=== PATIENT | female | born 1985 | race Caucasian/White ===

== ENCOUNTER 2022-06-09 12:21 | Outpatient (CLI) | payer OTHER, SELFPAY ==
[2022-06-09 12:44] LABS: Basophils Percent Auto 0.2 % (0.2-1.2); Eosinophils Absolute Auto 0.1 K/mm3 (0-0.3); Eosinophils Percent Auto 1.5 % (0-4.4); Hematocrit 44.3 % (37.0-47.0); Hemoglobin 14.3 g/dL (12.0-15.0); Immature Granulocyte Absolute 0.03 K/mm3 (0.00-0.031); Immature Granulocyte Percent A 0.3 % (0-0.5); Lymphocytes Absolute Auto 2.67 K/mm3 (0.9-3.2); Lymphocytes Percent Auto 28.9 % (18.3-44.2); Mean Corpuscular HGB Conc 32.3 g/dl (32-36); Mean Corpuscular Hemoglobin 26.3 pg (26-34); Mean Corpuscular Volume 81.6 fl (80-100); Mean Platelet Volume 9.3 fl (7.4-10.4); Monocytes Absolute Auto 0.5 K/mm3 (0.1-0.6); Monocytes Percent Auto 5.5 % (2.6-8.5); Neutrophils Absolute Auto 5.9 K/mm3 (1.3-6.7); Neutrophils Percent Auto 63.6 % (45.5-73.1); Platelet Count Result 286 k/mm3 (150-375); Red Blood Count 5.43 M/mm3 (4.2-5.4); Red Cell Distribution Width 14.1 % (11.5-14.5); White Blood Count 9.3 K/mm3 (4.5-10.0)
[2022-06-09 12:59] LABS: Alanine Aminotransferase 26 U/L (6-35); Albumin Level 4.2 g/dL (3.5-5.1); Alkaline Phosphatase 98 U/L (38-126); Anion Gap 7 mmol/L (8-16); Aspartate Amino Transferase 20 U/L (14-36); Bilirubin,Total 0.5 mg/dL (0.2-1.3); Blood Urea Nitrogen 11 mg/dL (7-17); Calcium 8.4 mg/dL (8.4-10.2); Carbon Dioxide 21 mmol/L (22-30); Chloride 112 mmol/L (98-107); Cholesterol 214 mg/dL (0-200); Estimated Glomerular Filt Rate > 60; Glucose 101 mg/dL (65-110); HDL Direct 58 mg/dL; Sodium 140 mmol/L (137-145); Triglycerides 53 mg/dL (<150)
[2022-06-09 13:11] LABS: LDL Cholesterol Direct 122 mg/dL
[2022-06-09 13:48] LABS: Thyroid Stimulating Hormone Reflex 0.721 uIU/mL (0.465-4.68)
== END 2022-06-09 12:22 | disposition home or self-care (01) ==
LOC: ANHLAB 12:22
PROVIDERS: PCP Family Medicine; Visit Provider Internal Medicine Cardiovascular Disease
DX: R00.0 Tachycardia, unspecified (principal)
CPT/HCPCS: 36415; 80053; 80061; 84443; 85025

== ENCOUNTER 2022-09-22 10:09 | Emergency (ER) | payer OTHER, SELFPAY ==
--- NOTE | ~2022-09-22 | CT_ITS ---
EXAMINATION: CT BRAIN W/O DATE: 09/22/2022 11:15 INDICATION: Head injury. Altered mental status. TECHNIQUE: Computed tomography (CT) of the head was performed without intravenous contrast. The dose- length product was 605.33 mGy-cm. Automated exposure control and iterative reconstruction technique w ere employed. COMPARISON: No prior studies for comparison. FINDINGS: Normal brain parenchymal volume for age. Normal pineda-white differentiation. No acute intrac ranial hemorrhage, infarction, mass or mass effect. No ventriculomegaly or midline shift. Midline sagittal images demonstrate a normal corpus callosum, c raniovertebral junction and sella turcica. Basilar cisterns are patent. Paranasal sinuses and mastoids are pneumatized. No depressed skull fractures. IMPRESSION: 1. No acute intracranial abnormality. Reviewed, dictated and finalized at location []
[2022-09-22 10:17] VITALS: BP 124/89; PULSE 88; RESP 18; TEMP 37.2; O2SAT 99
--- NOTE | 2022-09-22 11:26 | ED.GENADULT ---
HPI - General Adult General Chief complaint: Head Injury Stated complaint: HEAD INJURY 09/20/22 WANTS REEVAL Time Seen by Provider: 09/22/22 10:46 History of Present Illness HPI narrative: 37-year-old female presented the emergency department for evaluation for intermittent confusion after having a recent head injury. Patient reports that she fell onto her waistband the resulting in a laceration to her head. Patient was seen at an outside hospital and had a head CT which initially showed a possible bleed. Patient had a repeat head CT which showed no bleed. Patient presented to our emergency department because she states that she did have some increased confusion Related Data Home Medications Medication Instructions Recorded Confirmed No Home Medications 06/09/22 07/25/22 Allergies Allergy/AdvReac Type Severity Reaction Status Date / Time amoxicillin Allergy Severe amoxicillin Verified 09/22/22 10:16 ([id number]) Sulfa (Sulfonamide Allergy Mild Sulfa Verified 09/22/22 10:16 Antibiotics) (Sulfonamide Antibiotics) ([id number]) cephalexin Allergy Unknown cephalexin Verified 09/22/22 10:16 ([id number]) latex Allergy Unknown latex Verified 09/22/22 10:16 ([id number]) peanut Allergy Unknown peanut Verified 09/22/22 10:16 ([id number]) Penicillins Allergy Unknown Penicillins Verified 09/22/22 10:16 ([id number]) Review of Systems Review of Systems: All systems reviewed & are unremarkable except as noted in HPI and below PMFSH Social History Social History Smoking packs per day: 1 Smoking cigarettes per day: 20.0 Smoking status: Current every day smoker Tobacco type: cigarettes Alcohol intake: current Drinks per week: 2 Substance use: never Lack of Transportation: No Lack of Food: Never True Current Housing: I Have Housing Concerned About Future Housing: No Difficulty Paying Gas/Electric Bills: YES Difficulty Paying for Meds: No Currently Unemployed: YES Education: High School Diploma/GED Difficulty w/ Childcare or Family Care: No Living arrangements: with family Occupation/Education: unemployed Gender identity (if verbalized by the patient): Female Sexual Orientation (if Verbalized by the Patient): Straight or Heterosexual Spiritual care concerns: No Agree to blood products: Yes Exam Narrative: APPEARANCE: Well appearing, no pain, no distress, well-nourished. HEAD: normocephalic, atraumatic. EYES: PERRLA/EOMI, conjunctivae clear. NOSE: Normal no drainage EARS:TMS clear with good light reflex. THROAT: Pharynx clear, no exudate. NECK: Supple. No adenopathy, no masses. RESPIRATORY: Airway patent, respirations nonlabored. Clear to auscultation bilaterally, no rales, rhonchi, wheezing. CARDIOVASCULAR: Regular rate and rhythm without murmurs rubs or gallops. ABDOMINAL: Soft, nontender, nondistended, normal bowel sounds MUSCULOSKELETAL: Moves all extremities. Strength/ROM intact, No edema, No calf tenderness. NEURO: Alert. Cranial nerves II through XII intact. Grossly intact. No ataxia or drift SKIN: Warm, dry. Normal Color. Healing laceration Course Course Emergency Course: 37-year-old female presented ED for evaluation of confusion in the context of a possible head bleed after head injury. Head CT showed no acute intracranial abnormality. Patient had a normal neuro exam. Patient was alert and oriented to person place date. Patient was also able to provide her medical history and correctly stated to her family was. Symptoms are consistent with a concussion. Patient family were updated the results of the work-up and patient was encouraged to have close follow-up with her primary care physician. Vital Signs Vital signs: Vital Signs Temperature 98.9 F 09/22/22 10:17 Pulse Rate 88 09/22/22 10:17 Respiratory Rate 18 09/22/22 10:17 Blood Pressure 124/89
[2022-09-22 11:51] VITALS: BP 121/90; PULSE 81; RESP 16; O2SAT 98
== END 2022-09-22 11:52 | disposition home or self-care (01) ==
PROVIDERS: Emergency Provider Emergency Medicine; PCP Family Medicine
DX: S06.0X0A Concussion without loss of consciousness, initial encounter (principal); F17.210 Nicotine dependence, cigarettes, uncomplicated; W01.198A Fall on same level from slipping, tripping and stumbling with subsequent striking against other object, initial encounter
CPT/HCPCS: 70450; 99284

== ENCOUNTER 2022-10-31 16:39 | Emergency (ER) | payer OTHER, SELFPAY ==
[2022-10-31 16:41] VITALS: BP 131/96; PULSE 120; RESP 16; TEMP 36.6; O2SAT 99
[2022-10-31 16:46] VITALS: TEMP 37
[2022-10-31 17:33] VITALS: PULSE 109; RESP 18; O2SAT 98
--- NOTE | 2022-10-31 17:38 | ED.SKABFB ---
HPI - Skin/Abscess/Foreign Bdy General Chief complaint: Skin/Abscess/Foreign Body Stated complaint: rash Time Seen by Provider: 10/31/22 17:12 Source: patient Mode of arrival: ambulatory Limitations: no limitations History of Present Illness HPI narrative: This is a 37-year-old female that presents to the emergency department for an itchy rash. Present over the last 3 days. Reports a possible spider bite to her back. She was started on clindamycin for cellulitis. She does believe that the rash started before starting her antibiotic. Reports rash present on her arms, legs and abdomen. She has been taking Benadryl with little relief. Denies fevers. Related Data Allergies Allergy/AdvReac Type Severity Reaction Status Date / Time amoxicillin Allergy Severe amoxicillin Verified 10/31/22 16:59 ([id number]) peanut Allergy Severe peanut Verified 10/31/22 16:59 ([id number]) Sulfa (Sulfonamide Allergy Mild Sulfa Verified 10/31/22 16:59 Antibiotics) (Sulfonamide Antibiotics) ([id number]) cephalexin Allergy Unknown cephalexin Verified 10/31/22 16:59 ([id number]) Penicillins Allergy Unknown Penicillins Verified 10/31/22 16:59 ([id number]) latex AdvReac Mild latex Verified 10/31/22 16:59 ([id number]) Review of Systems Review of Systems: CONSTITUTIONAL: Denies fever SKIN: Reports rash and itching. All systems reviewed & are unremarkable except as noted in HPI and below PMFSH Past Medical History Medical History (Updated 10/31/22 @ 18:07 by Shannan Ochoa PA-C) Tachycardia Social History Social History Smoking packs per day: 1 Smoking cigarettes per day: 20.0 Smoking status: Current every day smoker Tobacco type: cigarettes Alcohol intake: current Drinks per week: 2 Substance use: never Lack of Transportation: No Lack of Food: Never True Current Housing: I Have Housing Concerned About Future Housing: No Difficulty Paying Gas/Electric Bills: YES Difficulty Paying for Meds: No Currently Unemployed: YES Education: High School Diploma/GED Difficulty w/ Childcare or Family Care: No Living arrangements: with family Occupation/Education: unemployed Gender identity (if verbalized by the patient): Female Sexual Orientation (if Verbalized by the Patient): Straight or Heterosexual Spiritual care concerns: No Agree to blood products: Yes Exam Narrative: GENERAL: Well-appearing, well-nourished, and in no acute distress. HEAD: Normocephalic, atraumatic. EYES: EOMI. CHEST: Clear to auscultation. No respiratory distress. No wheezes rales or rhonchi HEART: Regular rate and rhythm. No murmur heard. Normal peripheral pulses. BACK: Left upper back with small to moderate size area of erythema and induration with central eschar. No fluctuance noted EXTREMITIES: Normal range of motion. No edema. SKIN: Warm, dry. Red, papular rash present on the arms, legs, and abdomen NEURO: No focal deficits. Alert and oriented x3. PSYCH: Normal mood and affect Course Course Emergency Course: Patient agrees with plan of care. Will change oral antibiotic and instruct patient on antihistamines Vital Signs Vital signs: Vital Signs Temperature 97.8 F 10/31/22 16:41 Pulse Rate 120 H 10/31/22 16:41 Respiratory Rate 16 10/31/22 16:41 Blood Pressure 131/96 H 10/31/22 16:41 Pulse Oximetry 99 10/31/22 16:41 Oxygen Delivery Room Air 10/31/22 16:41 Temperature 98.6 F 10/31/22 16:46 Pulse Rate 109 H 10/31/22 17:33 Respiratory Rate 18 10/31/22 17:33 Blood Pressure 131/96 H 10/31/22 16:41 Pulse Oximetry 98 10/31/22 17:33 Oxygen Delivery Room Air 10/31/22 16:41 MDM - Skin/Abscess/Foreign Bdy MDM Narrative Medical decision making narrative: Patient presents to the emergency department for itchy rash over the last couple of days. Reports an area of cellulitis due
== END 2022-10-31 18:28 | disposition home or self-care (01) ==
PROVIDERS: Emergency Provider Physician Assistant; PCP Family Medicine
DX: L03.312 Cellulitis of back [any part except buttock and flank] (principal); R21 Rash and other nonspecific skin eruption; F17.210 Nicotine dependence, cigarettes, uncomplicated
CPT/HCPCS: 99283

== ENCOUNTER 2022-11-08 21:20 | Emergency (ER) | payer OTHER, SELFPAY ==
[2022-11-08] VITALS (11 sets, daily range): BP systolic 119–133; BP diastolic 84–94; PULSE 95–112; RESP 16–26; TEMP 36.2; O2SAT 95–100
--- NOTE | ~2022-11-08 | CT_ITS ---
EXAMINATION: CTA chest PE protocol DATE: 11/08/2022 22:37 INDICATION: chest pain, eval for PE TECHNIQUE: Computed tomography angiography (CTA) of the chest was performed with 100 mL Omnipaque-350 intravenous contrast timed to evaluate the pulmonary arteries. Coronal maximum intensity projection 3D-reconstructions were created by the technologist. The dose-length product (DLP) was 867.93 mGy-cm. Automated exposure control and iterative reconstruction technique were employed. COMPARISON: X-ray chest, same date; CT abdomen pelvis 12/05/2017. FINDINGS: Lung parenchyma and airways: Clear. Pleura: Unremarkable. Thoracic inlet, axillae and chest wall: 2.2 x 1.8 cm skin and subcutaneous fat defect in the left inf erior axillary soft tissues, with mild surrounding inflammatory changes in the adjacent subcutaneous fat. No foreign body or abscess. Prominent left axillary lymph nodes, not pathologic by size criteria . Thoracic aorta: Normal. Mediastinum: Normal. Heart and pericardium: Normal. Coronary artery calcifications: Absent. Upper abdomen: Cholelithiasis, without inflammatory change. Scarring in the upper pole the right kidn ey. Left liver lobe hemangioma. Bones: No acute osseous finding. Pulmonary arteries: Study quality: Adequate. No pulmonary emboli detected. IMPRESSION: No CT evidence of acute pulmonary embolus. 2.2 cm soft tissue defect in the left inferior axillary soft tissues, no foreign body or abscess. Cholelithiasis, without evidence of cholecystitis. Right renal scarring. Reviewed, dictated and finalized at location K. IMPRESSION: No CT evidence of acute pulmonary embolus. 2.2 cm soft tissue defect in the left inferior axillary soft tissues, no foreig n body or abscess. Cholelithiasis, without evidence of cholecystitis. Right renal scarring.
--- NOTE | ~2022-11-08 | XR_ITS ---
EXAMINATION: XR chest 2V Exam Date/Time: 11/08/2022 21:45 CDT HISTORY: chest pain LEFT SIDED THAT RADIATES TO LEFT ARM X 1 DAY Comparison: 02/09/2017. RESULT: Lines, tubes, and devices: None. Lungs and pleura: Clear. Cardiomediastinal silhouette: Stable. Other: No acute osseous or upper abdominal finding. IMPRESSION: No acute cardiopulmonary process. Reviewed, dictated and finalized at location K.
--- NOTE | 2022-11-08 21:27 | ECG_ITS ---
Measurements Intervals Ava Rate: 103 P: 38 TX: 150 QRS: 1 QRSD: 87 T: 18 QT: 323 QTc: 424 Interpretive Statements SINUS TACHYCARDIA MINIMAL VOLTAGE CRITERIA FOR LVH, CONSIDER NORMAL VARIANT [MEETS CRITERIA IN ONE OF: R(aVL), S(V1), R(V5), R(V5/V6)+S(V1)] ABNORMAL RHYTHM ECG NO PREVIOUS ECG AVAILABLE FOR COMPARISON Electronically Signed On 11-09-2022 10:16:26 CDT by Sondra Hartmann M.D.
--- NOTE | 2022-11-08 21:46 | PC.NURSE ---
Patient off unit to radiology.
[2022-11-08 21:48] LABS: Basophils Percent Auto 0.2 % (0.2-1.2); Eosinophils Absolute Auto 0.1 K/mm3 (0-0.3); Eosinophils Percent Auto 0.5 % (0-4.4); Hematocrit 39.9 % (37.0-47.0); Hemoglobin 13.1 g/dL (12.0-15.0); Immature Granulocyte Absolute 0.12 K/mm3 (0.00-0.031); Immature Granulocyte Percent A 0.7 % (0-0.5); Lymphocytes Absolute Auto 2.43 K/mm3 (0.9-3.2); Lymphocytes Percent Auto 14.7 % (18.3-44.2); Mean Corpuscular HGB Conc 32.8 g/dl (32-36); Mean Corpuscular Hemoglobin 26.4 pg (26-34); Mean Corpuscular Volume 80.4 fl (80-100); Monocytes Absolute Auto 0.7 K/mm3 (0.1-0.6); Monocytes Percent Auto 4.1 % (2.6-8.5); Neutrophils Absolute Auto 13.2 K/mm3 (1.3-6.7); Neutrophils Percent Auto 79.8 % (45.5-73.1); Platelet Count Result 317 k/mm3 (150-375); Red Blood Count 4.96 M/mm3 (4.2-5.4); Red Cell Distribution Width 13.8 % (11.5-14.5); White Blood Count 16.5 K/mm3 (4.5-10.0)
[2022-11-08 21:59] LABS: Partial Thromboplastin Time 31.6 SECONDS (22.3-36.8); Prothrombin Time 13.3 Seconds (11.1-14.7)
[2022-11-08 22:00] LABS: Alanine Aminotransferase 32 U/L (6-35); Albumin Level 3.8 g/dL (3.5-5.1); Alkaline Phosphatase 79 U/L (38-126); Anion Gap 7 mmol/L (8-16); Aspartate Amino Transferase 24 U/L (14-36); Bilirubin,Total 0.2 mg/dL (0.2-1.3); Blood Urea Nitrogen 19 mg/dL (7-17); Calcium 8.8 mg/dL (8.4-10.2); Carbon Dioxide 21 mmol/L (22-30); Chloride 107 mmol/L (98-107); Estimated CRCL calculation 122 ml/min; Estimated Glomerular Filt Rate > 60; Glucose 151 mg/dL (65-110); Lipase 161 U/L (23-300); Potassium 3.5 mmol/L (3.4-5.0); Sodium 135 mmol/L (137-145)
[2022-11-08 22:11] LABS: Troponin I < 0.012 ng/mL (0.000-0.034)
--- NOTE | 2022-11-08 22:36 | PC.NURSE ---
Patient off unit to CT>
--- NOTE | 2022-11-08 23:11 | PC.NURSE ---
Patient report given to ALEXANDER Antonio. All questions answered and care of patient transferred.
--- NOTE | 2022-11-08 23:57 | ED.GENADULT ---
HPI - General Adult General Chief complaint: Chest Pain Stated complaint: cp Time Seen by Provider: 11/08/22 21:50 History of Present Illness HPI narrative: Patient 37-year-old female who presents the emergency department with chief complaint of left-sided chest pain. The patient reports that she recently had an abscess to the left chest wall that she has incised and drained herself and has been treated with localized wound care patient states that she is on antibiotics and reports that she had an episode where she started having pain in the left side of her chest that she describes as sharp the patient reports the pain is worse with inspiration and improved with rest. Related Data Allergies Allergy/AdvReac Type Severity Reaction Status Date / Time amoxicillin Allergy Severe amoxicillin Verified 11/08/22 21:36 ([id number]) peanut Allergy Severe peanut Verified 11/08/22 21:36 ([id number]) Sulfa (Sulfonamide Allergy Mild Sulfa Verified 11/08/22 21:36 Antibiotics) (Sulfonamide Antibiotics) ([id number]) cephalexin Allergy Unknown cephalexin Verified 11/08/22 21:36 ([id number]) Penicillins Allergy Unknown Penicillins Verified 11/08/22 21:36 ([id number]) latex AdvReac Mild latex Verified 11/08/22 21:36 ([id number]) Review of Systems Review of Systems: A 10 system review of systems was completed on the patient and is negative except for what is stated in the HPI. Nursing and ancillary documentation was reviewed. [facility] Past Medical History Medical History Tachycardia Social History Social History Smoking packs per day: 1 Smoking cigarettes per day: 20.0 Smoking status: Current every day smoker Tobacco type: cigarettes Alcohol intake: current Drinks per week: 2 Substance use: never Lack of Transportation: No Lack of Food: Never True Current Housing: I Have Housing Concerned About Future Housing: No Difficulty Paying Gas/Electric Bills: YES Difficulty Paying for Meds: No Currently Unemployed: YES Education: High School Diploma/GED Difficulty w/ Childcare or Family Care: No Living arrangements: with family Occupation/Education: unemployed Gender identity (if verbalized by the patient): Female Sexual Orientation (if Verbalized by the Patient): Straight or Heterosexual Spiritual care concerns: No Agree to blood products: Yes Exam Narrative: GENERAL: Well-appearing, well-nourished, and in no acute distress. HEAD: Normocephalic, atraumatic. EYES: PERRLA and EOMI. ENT: Nares clear, no rhinorrhea or epistaxis. Mucous membranes moist. NECK: Supple. CHEST: Clear to auscultation. No respiratory distress. HEART: Regular rate and rhythm. No murmur heard. Normal peripheral pulses. ABDOMEN: Soft, nontender, nondistended, normal active bowel sounds. EXTREMITIES: Normal range of motion. No edema. SKIN: Warm, dry, no rash. There is a open wound present in the left axillary region skin is nice and pink there is no active purulent drainage NEURO: No focal deficits. Alert and oriented x3. PSYCH: Normal mood and affect. Course Vital Signs Vital signs: Vital Signs Temperature 36.2 C L 11/08/22 21:28 Pulse Rate 104 H 11/08/22 21:28 Respiratory Rate 19 11/08/22 21:28 Blood Pressure 133/94 H 11/08/22 21:28 Pulse Oximetry 98 11/08/22 21:28 Oxygen Delivery Room Air 11/08/22 21:28 Temperature 36.2 C L 11/08/22 21:28 Pulse Rate 97 11/08/22 23:00 Respiratory Rate 24 H 11/08/22 23:00 Blood Pressure 119/84 11/08/22 22:18 Pulse Oximetry 100 11/08/22 23:00 Oxygen Delivery Autopap 11/08/22 22:37 Medical Decision Making [facility] Narrative Medical decision making narrative: Differential diagnosis includes ACS, pulmonary embolism, abscess, Laboratory studies were obtained on the iveth
[2022-11-09 01:03] LABS: Troponin I < 0.012 ng/mL (0.000-0.034)
[2022-11-09 02:03] VITALS: BP 119/84; PULSE 74; RESP 15; O2SAT 98
== END 2022-11-09 02:05 | disposition home or self-care (01) ==
PROVIDERS: Emergency Provider Emergency Medicine; PCP Family Medicine
DX: L03.313 Cellulitis of chest wall (principal); R07.89 Other chest pain; F17.210 Nicotine dependence, cigarettes, uncomplicated
CPT/HCPCS: 36415; 71046; 71275; 80053; 83690; 84484; 85025; 85610; 85730; 93005; 99284; Q9967

== ENCOUNTER 2023-07-26 15:26 | Emergency (ER) | payer OTHER, SELFPAY ==
--- NOTE | ~2023-07-26 | CT_ITS ---
EXAMINATION: CT abdomen pelvis w con DATE: 07/26/2023 22:33 INDICATION: Low abdominal pain. TECHNIQUE: Computed tomography (CT) of the abdomen and pelvis was performed with 100 mL Omnipaque 350 intravenous contrast. Automated exposure control and iterative reconstruction technique were employe d. The dose-length product was 1356.05 mGy-cm. COMPARISON: None. FINDINGS: The visualized portions of the lung bases demonstrate mild atelectasis. No pleural effusion . The heart size is normal. No pericardial effusion. In the left hepatic lobe, there is a 2.5 cm mass with interrupted peripheral puddling of contrast, consistent with a hemangioma. There is a gallstone in the gallbladder, which is normal in size. The spleen, pancreas, and adrenal glands are normal. Th ere are cysts in the kidneys measuring up to 10 mm on the left. There is cortical thinning of right k idney. There are approximately 3 stones measuring up to 3 mm in right kidney. There is a 2 mm stone i n left kidney. There are scattered diverticula in the colon. There is fat stranding around a divertic ulum of the sigmoid colon, consistent with diverticulitis. The appendix is normal. There are no patho logically enlarged lymph nodes. There is no free intraperitoneal fluid. There is mild thoracic and cristine mbar spondylosis. IMPRESSION: 1. Acute sigmoid diverticulitis. No perforation or abscess. Reviewed, dictated and finalized at location E.
[2023-07-26 16:03] VITALS: BP 129/94; PULSE 110; RESP 20; TEMP 36.7; O2SAT 98
--- NOTE | 2023-07-26 16:05 | ECG_ITS ---
SEE SCANNED COPY FOR CONFIRMED REPORT MTDD
--- NOTE | 2023-07-26 16:06 | ED.WEAKNESS ---
HPI - Weakness General Chief complaint: Weakness Stated complaint: WEAKNESS Time Seen by Provider: 07/26/23 18:47 Focused HPI: GENERAL: Well-appearing, well-nourished, and in no acute distress. HEAD: Normocephalic, atraumatic. CHEST: Clear to auscultation. No respiratory distress. HEART: Regular rate and rhythm. NEURO: Alert and oriented x3. Patient screened in triage and initial orders placed. Additional care and disposition to be based upon diagnostic testing and treatment. 38-year-old morbidly obese female presents to the emergency room for evaluation of ?my legs feel heavy? however 3 days. Patient states that she has had increased weakness. Also admits to recent loss of appetite. States she has developed numbness and tingling in bilateral lower extremities. Denies any injury. Also complains of periumbilical discomfort. Denies nausea vomiting or diarrhea. Patient also endorses shortness of breath x1 week Related Data Allergies Allergy/AdvReac Type Severity Reaction Status Date / Time amoxicillin Allergy Severe amoxicillin Verified 07/26/23 16:12 ([id number]) peanut Allergy Severe peanut Verified 07/26/23 16:12 ([id number]) Sulfa (Sulfonamide Allergy Mild Sulfa Verified 07/26/23 16:12 Antibiotics) (Sulfonamide Antibiotics) ([id number]) cephalexin Allergy Unknown cephalexin Verified 07/26/23 16:12 ([id number]) Penicillins Allergy Unknown Penicillins Verified 07/26/23 16:12 ([id number]) azithromycin Allergy Hives Verified 07/26/23 16:13 latex AdvReac Mild latex Verified 07/26/23 16:12 ([id number]) [facility] Past Medical History Medical History Tachycardia Social History Social History Smoking packs per day: 0.5 Smoking cigarettes per day: 10.0 Smoking status: Current every day smoker Tobacco type: cigarettes Alcohol intake: current Drinks per week: 2 Substance use: never Lack of Transportation: No Lack of Food: Never True Current Housing: I Have Housing Concerned About Future Housing: No Difficulty Paying Gas/Electric Bills: YES Difficulty Paying for Meds: No Currently Unemployed: YES Education: High School Diploma/GED Difficulty w/ Childcare or Family Care: No Living arrangements: with family Occupation/Education: unemployed Gender identity (if verbalized by the patient): Female Sexual Orientation (if Verbalized by the Patient): Straight or Heterosexual Spiritual care concerns: No Agree to blood products: Yes Course Vital Signs Vital signs: Vital Signs Temperature 36.7 C 07/26/23 16:03 Pulse Rate 110 H 07/26/23 16:03 Respiratory Rate 20 07/26/23 16:03 Blood Pressure 129/94 H 07/26/23 16:03 Pulse Oximetry 98 07/26/23 16:03 Temperature 36.5 C 07/26/23 16:17 Pulse Rate 94 07/26/23 19:14 Respiratory Rate 11 L 07/26/23 19:14 Blood Pressure 122/96 H 07/26/23 19:14 Pulse Oximetry 100 07/26/23 19:14 Oxygen Delivery Room Air 07/26/23 16:22 MDM - Weakness Lab Data 07/26/23 16:20 07/26/23 16:20 Labs: Lab Results 07/26/23 07/26/23 07/26/23 Range/Units 16:20 16:38 17:16 WBC 11.9 H (4.5-10.0) K/mm3 RBC 5.41 H (4.2-5.4) M/mm3 Hgb 14.1 (12.0-15.0) g/dL Hct 43.0 (37.0-47.0) % MCV 79.5 L (80-100) fl MCH 26.1 (26-34) pg MCHC 32.8 (32-36) g/dl RDW 14.0 (11.5-14.5) % Plt Count 262 (150-375) k/mm3 MPV 9.5 (7.4-10.4) fl Immature Gran % (Auto) 0.4 (0-0.5) % Neut % (Auto) 67.6 (45.5-73.1) % Lymph % (Auto) 24.4 (18.3-44.2) % Gregg % (Auto) 5.3 (2.6-8.5) % Eos % (Auto) 2.1 (0-4.4) % Baso % (Auto) 0.2 (0.2-1.2) % Lymph # (Auto) 2.91 (0.9-3.2) K/mm3 Gregg # (Auto) 0.6 (0.1-0.6) K/mm3 Eos # (Auto) 0.3 (0-0.3) K/mm3 Baso # (Auto) 0.0 (0.0-0.1) K/mm3 Abs Immat Gran
[2023-07-26 16:17] VITALS: BP 108/91; PULSE 96; RESP 14; TEMP 36.5; O2SAT 99
[2023-07-26 16:22] VITALS: PULSE 86; O2SAT 99
[2023-07-26 16:35] LABS: Basophils Percent Auto 0.2 % (0.2-1.2); Eosinophils Absolute Auto 0.3 K/mm3 (0-0.3); Eosinophils Percent Auto 2.1 % (0-4.4); Hemoglobin 14.1 g/dL (12.0-15.0); Immature Granulocyte Absolute 0.05 K/mm3 (0.00-0.031); Immature Granulocyte Percent A 0.4 % (0-0.5); Lymphocytes Absolute Auto 2.91 K/mm3 (0.9-3.2); Lymphocytes Percent Auto 24.4 % (18.3-44.2); Mean Corpuscular HGB Conc 32.8 g/dl (32-36); Mean Corpuscular Hemoglobin 26.1 pg (26-34); Mean Corpuscular Volume 79.5 fl (80-100); Mean Platelet Volume 9.5 fl (7.4-10.4); Monocytes Absolute Auto 0.6 K/mm3 (0.1-0.6); Monocytes Percent Auto 5.3 % (2.6-8.5); Neutrophils Absolute Auto 8.1 K/mm3 (1.3-6.7); Neutrophils Percent Auto 67.6 % (45.5-73.1); Platelet Count Result 262 k/mm3 (150-375); Red Blood Count 5.41 M/mm3 (4.2-5.4); White Blood Count 11.9 K/mm3 (4.5-10.0)
[2023-07-26 16:49] LABS: Alanine Aminotransferase 29 U/L (6-35); Albumin Level 4.3 g/dL (3.5-5.1); Alkaline Phosphatase 93 U/L (38-126); Anion Gap 7 mmol/L (4-12); Aspartate Amino Transferase 23 U/L (14-36); Bilirubin,Total 0.5 mg/dL (0.2-1.3); Blood Urea Nitrogen 11 mg/dL (7-17); Calcium 9.2 mg/dL (8.4-10.2); Carbon Dioxide 23 mmol/L (22-30); Chloride 107 mmol/L (98-107); Estimated CRCL calculation 121 ml/min; Estimated Glomerular Filt Rate > 60; Glucose 99 mg/dL (65-110); Lipase 87 U/L (23-300); Magnesium 2.2 mg/dL (1.6-2.3); Potassium 3.5 mmol/L (3.4-5.0); Sodium 137 mmol/L (137-145)
[2023-07-26 16:55] LABS: Appearance Urine Clear (Clear); Bilirubin Urine Negative (Negative); Blood Urine Negative (Negative); Color Urine Yellow (Yellow); Glucose Urine UA Negative (Negative); Ketones Urine Negative (Negative); Leukocyte Esterase Ur Negative LEU/UL (Negative); Nitrate Urine Negative (Negative); Protein Urine Negative (Negative); Specific Grav Ur 1.016 (1.001-1.035)
[2023-07-26 16:58] LABS: Add Urine Microscopic? NO
[2023-07-26 16:59] LABS: Troponin I < 0.012 ng/mL (0.000-0.034)
[2023-07-26 18:09] LABS: Influenza A QL RT-PCR Negative (Negative); Influenza B QL RT-PCR Negative (Negative); RSV RNA, RT-PCR Negative (Negative); SARS-CoV-2 RNA PCR Negative (Negative)
--- NOTE | 2023-07-26 18:49 | ED.WEAKNESS ---
HPI - Weakness General Chief complaint: Weakness Stated complaint: WEAKNESS Time Seen by Provider: 07/26/23 18:47 Source: patient History of Present Illness HPI Narrative: 38 years old white female came to the emergency room by private car complaining of generalized numbness and tingling all over her body from head to toes over the last 3 days, slow walking, woke up this morning and feeling like a zombie. Weak all over. She denies any fever, chills, nausea, vomiting, diarrhea, constipation, urinary symptoms, chest pain shortness of breath headache or focal neuro deficits. Patient also complaining of an intermittent lower abdominal pain for the last 4 days. History of episodic tachycardia, section x2. Report a lot of stress lately Related Data Allergies Allergy/AdvReac Type Severity Reaction Status Date / Time amoxicillin Allergy Severe amoxicillin Verified 07/26/23 16:12 ([id number]) peanut Allergy Severe peanut Verified 07/26/23 16:12 ([id number]) Sulfa (Sulfonamide Allergy Mild Sulfa Verified 07/26/23 16:12 Antibiotics) (Sulfonamide Antibiotics) ([id number]) cephalexin Allergy Unknown cephalexin Verified 07/26/23 16:12 ([id number]) Penicillins Allergy Unknown Penicillins Verified 07/26/23 16:12 ([id number]) azithromycin Allergy Hives Verified 07/26/23 16:13 latex AdvReac Mild latex Verified 07/26/23 16:12 ([id number]) Review of Systems Review of Systems: All systems reviewed & are unremarkable except as noted in HPI and below PMFSH Past Medical History Medical History Tachycardia Social History Social History Smoking packs per day: 0.5 Smoking cigarettes per day: 10.0 Smoking status: Current every day smoker Tobacco type: cigarettes Alcohol intake: current Drinks per week: 2 Substance use: never Lack of Transportation: No Lack of Food: Never True Current Housing: I Have Housing Concerned About Future Housing: No Difficulty Paying Gas/Electric Bills: YES Difficulty Paying for Meds: No Currently Unemployed: YES Education: High School Diploma/GED Difficulty w/ Childcare or Family Care: No Living arrangements: with family Occupation/Education: unemployed Gender identity (if verbalized by the patient): Female Sexual Orientation (if Verbalized by the Patient): Straight or Heterosexual Spiritual care concerns: No Agree to blood products: Yes Exam Narrative: General appearance: Well-developed, well-nourished Skin: Normal color Head: Normocephalic, nontraumatic Eyes: Clear conjunctiva ENT: Oropharynx normal, ears normal, nose normal Neck: Supple, nontender Chest and respiratory: Airway patent, no respiratory distress, no accessory muscle use Heart: Regular rate/rhythm Abdomen: Soft, diffuse tenderness lower abdomen bilaterally, no guarding or rebound, no organomegaly, quiet bowel sounds Vascular: Normal peripheral pulses, normal capillary refill. Musculoskeletal: Normal range of motion, nontender back Neurologic: Alert and oriented ?3, HOUSEKEEPING LEAD is normal as tested, no gross motor deficit Course Vital Signs Vital signs: Vital Signs Temperature 36.7 C 07/26/23 16:03 Pulse Rate 110 H 07/26/23 16:03 Respiratory Rate 20 07/26/23 16:03 Blood Pressure 129/94 H 07/26/23 16:03 Pulse Oximetry 98 07/26/23 16:03 Temperature 36.5 C 07/26/23 16:17 Pulse Rate 94 07/26/23 19:14 Respiratory Rate 11 L 07/26/23 19:14 Blood Pressure 122/96 H 07/26/23 19:14 Pulse Oximetry 100 07/26/23 19:14 Oxygen Delivery Room Air
--- NOTE | 2023-07-26 19:11 | PC.NURSE ---
Report given to Edilma MUNOZ, all questions answered
[2023-07-26 19:14] VITALS: BP 122/96; PULSE 94; RESP 11; O2SAT 100
== END 2023-07-26 23:10 | disposition home or self-care (01) ==
PROVIDERS: Nurse Practitioner Family; Physician Assistant; Emergency Provider Emergency Medicine; PCP Family Medicine
DX: K57.32 Diverticulitis of large intestine without perforation or abscess without bleeding (principal); F17.210 Nicotine dependence, cigarettes, uncomplicated; Z20.822 Contact with and (suspected) exposure to COVID-19
CPT/HCPCS: 36415; 74177; 80053; 81003; 81025; 83690; 83735; 84484; 85025; 87637; 93005; 99284; Q9967

== ENCOUNTER 2023-08-27 11:00 | Outpatient (CLI) | payer OTHER, SELFPAY ==
[2023-08-27 12:03] LABS: Alanine Aminotransferase 26 U/L (6-35); Albumin Level 4.4 g/dL (3.5-5.1); Alkaline Phosphatase 80 U/L (38-126); Anion Gap 7 mmol/L (4-12); Aspartate Amino Transferase 22 U/L (14-36); Bilirubin,Total 0.5 mg/dL (0.2-1.3); Blood Urea Nitrogen 8 mg/dL (7-17); Calcium 8.9 mg/dL (8.4-10.2); Carbon Dioxide 19 mmol/L (22-30); Chloride 112 mmol/L (98-107); Cholesterol 208 mg/dL (0-200); Estimated Glomerular Filt Rate > 60; Glucose 85 mg/dL (65-110); HDL Direct 52 mg/dL; Potassium 4.2 mmol/L (3.4-5.0); Sodium 138 mmol/L (137-145); Triglycerides 68 mg/dL (<150)
[2023-08-27 12:14] LABS: LDL Cholesterol Direct 142 mg/dL
== END 2023-08-27 11:01 | disposition home or self-care (01) ==
LOC: ANHLAB 11:02
PROVIDERS: PCP Family Medicine; Visit Provider Internal Medicine Cardiovascular Disease
DX: E66.9 Obesity, unspecified (principal)
CPT/HCPCS: 36415; 80053; 80061

== ENCOUNTER 2023-10-05 09:01 | Outpatient (CLI) | payer OTHER, SELFPAY ==
--- NOTE | 2023-10-05 09:11 | ECHO_ITS ---
Patient Info Name: Carmen Lazar Age: 38 years : 1985 Gender: Female Ht: 62 in Wt: 220 lbs BSA: 2.14 m2 HR: 84 bpm BP: 125 / 94 mmHg Technical Quality: Fair Exam Date: 10/05/2023 9:46 AM Exam Location: Echo Lab Patient Status: Outpatient Admit Date: 10/05/2023 Staff Ordering Physician: Bradley Du DO Computer Numerical Control Programmer: Marcus Millan RDCS Attending Provider: Bradley Du DO Referring Physician: Florian MORGAN; Exam Type: CA echo doppler color flow Study Info Indications R06.09 - Other forms of dyspnea Complete two-dimensional, color flow and Doppler transthoracic echocardiogram is performed. Summary 1. Complete two-dimensional, color flow and Doppler transthoracic echocardiogram is performed. 2. Left ventricular chamber dimension is normal. 3. Left ventricular systolic function is normal, estimated at 55-60%. 4. The left ventricular diastolic function is normal. 5. There is trace tricuspid valve regurgitation. 6. No pulmonary hypertension, estimated pulmonary arterial systolic pressure is 22 mmHg. 7. There is trace pulmonic regurgitation. Left Ventricle Tissue doppler E/e' is not performed. Left ventricular chamber dimension is normal. Left ventricular systolic function is normal, estimated at 55-60%. The left ventricular diastolic function is normal. Right Ventricle Right ventricular systolic function is normal and with normal TAPSE 1.8 cm. Right ventricular chamber dimension is normal. Left Atria Left atrial chamber dimension is normal. Right Atria Right atrial chamber dimension is normal. Aortic Valve The aortic valve is trileaflet. There is no aortic valve stenosis. There is no aortic valve regurgitation. Pulmonic Valve There is trace pulmonic regurgitation. Mitral Valve There is no mitral valve stenosis. There is no mitral valve regurgitation. Tricuspid Valve There is trace tricuspid valve regurgitation. No pulmonary hypertension, estimated pulmonary arterial systolic pressure is 22 mmHg. Pericardium/Pleural There is no pericardial effusion. Inferior Vena Cava Normal inferior vena cava with >50% collapse upon inspiration consistent with normal right atrial pressure, 5 mmHg. Aorta The aortic root size at the sinus of Valsalva is normal. Left Ventricular Outflow Tract Name Value Normal LVOT 2D LVOT Diameter 2.0 cm LVOT Doppler LVOT Peak Gradient 4 mmHg LVOT Mean Gradient 2 mmHg LVOT VTI 19 cm LVOT VTI/AV VTI Ratio 1.0 LVOT Stroke Volume 61 ml LVOT CO 4.6 l/min LVOT CI 2.1 l/min/m2 Pulmonic Valve Name Value Normal RVOT Doppler RVOT Peak Gradient 2 mmHg PV Doppler PV Peak Gradient 4
--- NOTE | 2023-10-05 09:11 | EST_ITS ---
Patient Info Name: Carmen Lazar Age: 38 years : 1985 Gender: Female Ht: 62 in Wt: 220 lbs BSA: 2.14 m2 HR: 84 bpm BP: 123 / 87 mmHg Heart Rhythm: Sinus Rhythm Exam Date: 10/05/2023 9:17 AM Exam Location: Echo Lab Patient Status: Outpatient Admit Date: 10/05/2023 Staff Ordering Physician: Bradley Du DO Attending Provider: Bradley Du DO Exercise Technologist: Ashly Ferrara CT Exercise Physician: Bradley Du DO Exam Type: CA stress test treadmill Study Info Indications R07.89 - Other chest pain A treadmill exercise stress test was performed. Summary 1. 1. Negative Hcrist exercise stress test for ischemic ST changes by ECG criteria. However, patient achieved only 80% MPHR for age group which reduces sensitivity of the test. 2. 2. Reduced functional capacity, achieving 7 METs of workload. 3. 3. Appropriate HR response to exercise. 4. 4. Appropriate HR recovery at 1 minute post exercise. 5. 5. No imaging with stress testing. 6. 6. Patient informed of the above results. Protocol: Christ Stress ECG Details Stage: REST Duration (min): 5 min : 35 sec Speed (mph): 0.0 Grade (%): 0 HR (bpm): 91 SBP (mmHg): 123 DBP (mmHg): 87 METS: --- Stage: REST Duration (min): 5 min : 50 sec Speed (mph): 0.0 Grade (%): 0 HR (bpm): 92 SBP (mmHg): 123 DBP (mmHg): 87 METS: --- Stage: STAGE 1 Duration (min): 1 min : 0 sec Speed (mph): 1.7 Grade (%): 10 HR (bpm): 116 SBP (mmHg): 123 DBP (mmHg): 87 METS: --- Stage: STAGE 1 Duration (min): 2 min : 0 sec Speed (mph): 1.7 Grade (%): 10 HR (bpm): 122 SBP (mmHg): 123 DBP (mmHg): 87 METS: --- Stage: STAGE 1 Duration (min): 3 min : 0 sec Speed (mph): 1.7 Grade (%): 10 HR (bpm): 126 SBP (mmHg): 163 DBP (mmHg): 75 METS: --- Stage: STAGE 2 Duration (min): 1 min : 0 sec Speed (mph): 2.5 Grade (%): 12 HR (bpm): 138 SBP (mmHg): 163 DBP (mmHg): 75 METS: --- Stage: STAGE 2 Duration (min): 2 min : 0 sec Speed (mph): 2.5 Grade (%): 12 HR (bpm): 142 SBP (mmHg): 140 DBP (mmHg): 77 METS: --- Stage: STAGE 2 Duration (min): 3 min : 0 sec Speed (mph): 2.5 Grade (%): 12 HR (bpm): 145 SBP (mmHg): 140 DBP (mmHg): 77 METS: --- Stage: RECOVERY Duration (min): 0 min : 59 sec Speed (mph): 0.0 Grade (%): 0 HR (bpm): 117 SBP (mmHg): 141 DBP (mmHg): 67 METS: --- Stage: RECOVERY Duration (min): 1 min : 59 sec Speed (mph): 0.0 Grade (%): 0 HR (bpm): 95 SBP (mmHg): 141 DBP (mmHg): 67 METS: --- Stage: RECOVERY Duration (min): 2 min : 59 sec Speed (mph): 0.0 Grade (%): 0 HR (bpm): 102 SBP (mmHg): 126 DBP (mmHg): 70 METS: --- Stage: RECOVERY Duration (min): 3 min : 17 sec Speed (mph): 0.0 Grade (%): 0 HR (bpm): 98 SBP (mmHg): 126 DBP (mmHg): 70 METS: --- Rest HR: 92 bpm Peak HR: 146 bpm Rest Sys BP: 123 mmHg Peak Sys BP: 163 mmHg Max Pred
== END 2023-10-05 09:02 | disposition home or self-care (01) ==
LOC: ANHCARD 09:02
PROVIDERS: PCP Family Medicine; Visit Provider Internal Medicine Cardiovascular Disease
DX: R07.89 Other chest pain (principal); R06.09 Other forms of dyspnea
CPT/HCPCS: 93017; 93306

== ENCOUNTER 2023-11-28 17:00 | Emergency (ER) | payer OTHER, SELFPAY ==
[2023-11-28] VITALS (7 sets, daily range): BP systolic 115–131; BP diastolic 79–87; PULSE 77–122; RESP 14–20; TEMP 36.4–36.8; O2SAT 94–100
--- NOTE | ~2023-11-28 | CT_ITS ---
EXAMINATION: CTA chest PE abdomen pel DATE: 11/28/2023 22:11 INDICATION: Chest and abdominal pain TECHNIQUE: Computed tomography (CT) pulmonary angiogram of the chest was performed with 100 mL Omnipa que-350 intravenous contrast. Additional 3D reconstructions utilizing coronal maximum intensity proje ction (MIP) were performed. CT of the abdomen and pelvis was performed with intravenous contrast util izing the same contrast bolus following a short delay. Automated exposure control and iterative recon struction technique were employed. The dose-length product was 1410.75 mGy-cm. COMPARISON: None FINDINGS: Chest: No pulmonary embolism. Mildly decrease sensitivity in the subsegmental arteries in the mid and upper lungs and segmental pulmonary arteries in the lower lungs due to lower lung predominant respiratory m otion. This renders evaluation some of the basilar subsegmental pulmonary arteries essentially nondia gnostic. No pneumonia, pulmonary edema or pleural effusion. Heart size is normal. No pericardial effu fady. Thoracic aorta is normal in caliber with no dissection. No pathologically enlarged thoracic lym phadenopathy. Mild thoracic spondylosis. Abdomen/pelvis: Large calcified gallstone in the normal-appearing gallbladder. 2.8 cm hemangioma in the left hepatic lobe with peripheral discontinuous puddling of contrast. There is a second subcentimeter low-attenuat ion hemangioma more laterally in the left hepatic lobe with prominent enhancement in the slightly lat er phase of contrast on the prior study. Spleen, pancreas and bilateral adrenal glands are normal. Bi lateral renal cysts measuring up to 1 cm the left kidney. Bilateral nonobstructing nephrolithiasis wi th 3 stones measuring up to 3 mm at the lower pole of the right kidney and single 1-2 mm stone at the lower pole of the left kidney. Mild scattered colonic diverticulosis without adjacent compression to suggest arthritis. Small bowel and appendix are normal. Uterus and bilateral adnexa are unremarkable . Bladder is unremarkable accounting for nearly decompressed state. No free intraperitoneal gas or fl uid. No pathologically enlarged abdominal or pelvic lymphadenopathy. Mild lumbar spondylosis. IMPRESSION: 1. No pulmonary embolism with assessment of the subsegmental pulmonary arteries of the bilateral lung bases essentially nondiagnostic due to motion artifact. No other acute cardiopulmonary disease. 2. Cholelithiasis. 3. Bilateral nonobstructing nephrolithiasis. Reviewed, dictated and finalized at location A.
--- NOTE | 2023-11-28 17:02 | ECG_ITS ---
Test Date: 2023-11-28 17:06:14 Measurements Intervals [place] Rate: 122 P: 64 [place]: 146 QRS: 19 QRSD: 83 T: 53 QT: 323 QTc: 460 Interpretive Statements SINUS TACHYCARDIA LOW QRS VOLTAGE IN PRECORDIAL LEADS [QRS DEFLECTION < 1.0 mV IN CHEST LEADS] INCOMPLETE RIGHT BUNDLE BRANCH BLOCK No previous ECG available for comparison Electronically Signed On 11-29-2023 14:28:19 CDT by Artur Merritt M.D.
--- NOTE | 2023-11-28 18:03 | ED.GENADULT ---
HPI - General Adult General Chief complaint: Chest Pain <Joselin Álvarez APRN - Last Filed: 11/28/23 18:12> Stated complaint: Chest Pain, Weakness <Joselin Álvarez APRN - Last Filed: 11/28/23 18:12> Time Seen by Provider: 11/28/23 18:03 <Joselin Álvarez APRN - Last Filed: 11/28/23 18:12> Focused HPI: Pt is a 38-year-old female who presents to the ER with complaints of weakness and LOBO. She has decreased appetite and endorses nausea. Pt reports she was recently diagnosed with poison sumac and given Prednisone. She also endorses recent bruising. Pt also endorses throat and chest pain. She went to [place] two days ago and was diagnosed with epigastric pain. Pt reports her WBC was elevated at that time. She reports her strep swab was negative. Pt reports she has a history of asthma, bipolar disorder, and tachycardia. GENERAL: Well-appearing, well-nourished, and in no acute distress. HEAD: Normocephalic, atraumatic. CHEST: Clear to auscultation. ?No respiratory distress. HEART: Regular rate and rhythm.? NEURO: ?Alert and oriented x3. Patient screened in triage and initial orders placed.? ?Additional care and disposition to be based upon?diagnostic testing and treatment. <Joselin Álvarez APRN - Last Filed: 11/28/23 18:12> Source: patient <Joselin Álvarez APRN - Last Filed: 11/28/23 18:12> Mode of arrival: ambulatory <Joselin Álvarez APRN - Last Filed: 11/28/23 18:12> Limitations: no limitations <Joselin Álvarez APRN - Last Filed: 11/28/23 18:12> History of Present Illness HPI narrative: patient 38-year-old female who presents emergency department with chief complaint of generalized weakness abdominal pain and chest discomfort. The patient reports he has also had a sore throat patient was seen at [place] about 2 days ago and diagnosed with epigastric pain. Patient reports that she has history of asthma and reports has felt somewhat short of breath. Patient reports she is still on a pulse dose of steroids. <Paul Booth MD - Last Filed: 11/28/23 23:30> Related Data Allergies/adverse reactions: Allergies Allergy/AdvReac Type Severity Reaction Status Date / Time amoxicillin Allergy Severe amoxicillin Verified 08/27/23 10:23 ([id number]) peanut Allergy Severe peanut Verified 08/27/23 10:23 ([id number]) Sulfa (Sulfonamide Allergy Mild Sulfa Verified 08/27/23 10:23 Antibiotics) (Sulfonamide Antibiotics) ([id number]) cephalexin Allergy Unknown cephalexin Verified 08/27/23 10:23 ([id number]) Penicillins Allergy Unknown Penicillins Verified 08/27/23 10:23 ([id number]) azithromycin Allergy Hives Verified 08/27/23 10:23 latex AdvReac Mild latex Verified 08/27/23 10:23 ([id number]) <Joselin Álvarez, DRILLER AND REAMER - Last Filed: 11/28/23 18:12> Review of Systems Review of Systems: A 10 system review of systems was completed on the patient and is negative except for what is stated in the HPI. Nursing and ancillary documentation was reviewed. <Paul Booth MD - Last Filed: 11/28/23 23:30> PMFSH Past Medical History Medical History: Medical History Tachycardia <Joselin Álvarez, DEYA - Last Filed: 11/28/23 18:12> Social History Social History: Social History (Updated 08/27/23 @ 10:23 by Shelli Pace [facility]) Smoking packs per day: 0.5 Smoking cigarettes per day: 10.0 Smoking status: Current every day smoker Tobacco type: cigarettes Alcohol intake: current Drinks per week: 2 Substance use: never Do You Feel Safe in your Home?: Yes Lack of Transportation: No Lack of Food: Never True Current Housing: I Have Housing Concerned About Future Housing: No Difficulty Paying Gas/Electric Bills: YES Difficulty Paying for Meds: No Currently Unemployed: No Education: Decline to Answer Difficulty w
[2023-11-28 20:56] LABS: Basophils Percent Auto 0.1 % (0.2-1.2); Eosinophils Absolute Auto 0.3 K/mm3 (0-0.3); Eosinophils Percent Auto 2.2 % (0-4.4); Hematocrit 41.6 % (37.0-47.0); Hemoglobin 13.7 g/dL (12.0-15.0); Immature Granulocyte Absolute 0.06 K/mm3 (0.00-0.031); Immature Granulocyte Percent A 0.4 % (0-0.5); Lymphocytes Absolute Auto 4.38 K/mm3 (0.9-3.2); Mean Corpuscular HGB Conc 32.9 g/dl (32-36); Mean Corpuscular Hemoglobin 26.4 pg (26-34); Mean Corpuscular Volume 80.2 fl (80-100); Mean Platelet Volume 9.3 fl (7.4-10.4); Monocytes Percent Auto 7.4 % (2.6-8.5); Neutrophils Absolute Auto 7.9 K/mm3 (1.3-6.7); Neutrophils Percent Auto 57.9 % (45.5-73.1); Platelet Count Result 293 k/mm3 (150-375); Red Blood Count 5.19 M/mm3 (4.2-5.4); Red Cell Distribution Width 15.3 % (11.5-14.5); White Blood Count 13.7 K/mm3 (4.5-10.0)
[2023-11-28 21:07] LABS: Alanine Aminotransferase 25 U/L (6-35); Albumin Level 4.1 g/dL (3.5-5.1); Alkaline Phosphatase 81 U/L (38-126); Anion Gap 12 mmol/L (4-12); Aspartate Amino Transferase 23 U/L (14-36); Bilirubin,Total 0.2 mg/dL (0.2-1.3); Blood Urea Nitrogen 17 mg/dL (7-17); Calcium 8.7 mg/dL (8.4-10.2); Carbon Dioxide 24 mmol/L (22-30); Chloride 103 mmol/L (98-107); Estimated CRCL calculation 124 ml/min; Estimated Glomerular Filt Rate > 60; Glucose 85 mg/dL (65-110); Potassium 3.7 mmol/L (3.4-5.0); Sodium 139 mmol/L (137-145)
[2023-11-28 21:19] LABS: Troponin I < 0.012 ng/mL (0.000-0.034)
[2023-11-28] MEDS: KETOROLAC 15 MG/ML VIAL (*BKC) IV PUSH (21:29)
[2023-11-28] MEDS: IPRATROPIUM 0.5 MG/ALBUTEROL SULFATE 2.5 MG AMPUL.NEB 3 ML INHALATION (21:42)
[2023-11-28 21:43] LABS: Influenza A QL RT-PCR Negative (Negative); Influenza B QL RT-PCR Negative (Negative); RSV RNA, RT-PCR Negative (Negative); SARS-CoV-2 RNA PCR Negative (Negative)
[2023-11-28 21:48] LABS: BEDSIDEPREGUCG Negative
[2023-11-28 22:10] LABS: Strep Group A RT-PCR NOT DETECTED (Negative)
[2023-11-28] MEDS: ONDANSETRON INJ 4 MG/2 ML VIAL IV PUSH (22:29)
== END 2023-11-28 23:34 | disposition home or self-care (01) ==
PROVIDERS: Registered Nurse; Student in an Organized Health Care Education/Training Program; Emergency Provider Emergency Medicine
DX: K29.70 Gastritis, unspecified, without bleeding (principal); R07.89 Other chest pain; F17.210 Nicotine dependence, cigarettes, uncomplicated; Z79.899 Other long term (current) drug therapy; R00.0 Tachycardia, unspecified; I45.10 Unspecified right bundle-branch block; K80.20 Calculus of gallbladder without cholecystitis without obstruction; N20.0 Calculus of kidney
CPT/HCPCS: 36415; 71275; 74177; 80053; 81025; 84484; 85025; 87637; 87651; 93005; 94640; 96374; 96375; 99284; J1885; J2405; Q9967

== ENCOUNTER 2023-12-04 12:31 | Emergency (ER) | payer OTHER, SELFPAY ==
[2023-12-04] VITALS (9 sets, daily range): BP systolic 116–122; BP diastolic 78–92; PULSE 84–101; RESP 13–20; TEMP 36.6–36.7; O2SAT 95–100
--- NOTE | ~2023-12-04 | CT_ITS ---
EXAMINATION: CT abdomen pelvis wo con DATE: 12/04/2023 17:26 INDICATION: Left flank pain. TECHNIQUE: Computed tomography (CT) of the abdomen and pelvis was performed without intravenous contr ast. Automated exposure control and iterative reconstruction technique were employed. The dose-length product was 1145.63 mGy-cm. COMPARISON: CT abdomen and pelvis 11/28/2023 FINDINGS: The visualized portions of the lung bases demonstrate mild atelectasis. No pleural effusion . The heart is normal. No pericardial effusion. There is diffuse hepatic steatosis. There is a gallst one in the gallbladder, which is normal in size. The spleen, pancreas, and adrenal glands are normal. There is cortical thinning of the kidneys. There are approximately 4 stones in right kidney measurin g up to 6 mm. There is a 2 mm stone in left kidney. There are scattered diverticula in the colon. The re is fat stranding around a sigmoid diverticulum, consistent with diverticulitis. The appendix is no rmal. There are no pathologically enlarged lymph nodes. There is no free intraperitoneal fluid. There is mild thoracic and lumbar spondylosis. IMPRESSION: 1. Acute sigmoid diverticulitis. No perforation or abscess. Reviewed, dictated and finalized at location A.
--- NOTE | ~2023-12-04 | CT_ITS ---
EXAMINATION: CT brain wo con DATE: 12/04/2023 13:10 INDICATION: Headache and paresthesias TECHNIQUE: Computed tomography (CT) of the head was performed without intravenous contrast. Sagittal and coronal reconstructions were performed. The mA was adjusted according to patient size. Iterative reconstruction technique was employed. The dose-length product was 605.33 mGy-cm. COMPARISON: head CT dated 09/22/2022 FINDINGS: No acute intracranial hemorrhage, acute infarction or abnormal extra axial fluid collection. Ventricl es are normal and symmetric. No mass/mass effect. The orbits, paranasal sinuses and mastoid air cells are normal. IMPRESSION: 1. Normal head CT. Reviewed, dictated and finalized at location A. IMPRESSION: 1. Normal head CT.
--- NOTE | ~2023-12-04 | CT_ITS ---
EXAMINATION: CT lumbar spine wo con DATE: 12/04/2023 17:27 INDICATION: Left flank pain radiating down left thigh. TECHNIQUE: Computed tomography (CT) of the lumbar spine was performed without intravenous contrast. A utomated exposure control and iterative reconstruction technique were employed. The dose-length produ ct was 1125.16 mGy-cm. COMPARISON: Lumbar spine radiographs 08/16/2012 FINDINGS: There is 3 degrees levocurvature of lumbar spine. Vertebral body heights are normal. There is mildly decreased disc height at L3-L4 and L5-S1. The following disc levels are specifically discus sed: L1-L2: The disc does not extend beyond the endplate margin. There is mild bilateral facet joint osteo arthritis. There is no neural foraminal stenosis. There is no central canal stenosis. L2-L3: The disc does not extend beyond the endplate margin. There is mild bilateral facet joint osteo arthritis. There is no neural foraminal stenosis. There is no central canal stenosis. L3-L4: The disc is bulging. There is mild bilateral facet joint osteoarthritis. There is mild bilater al neural foraminal stenosis. There is mild central canal stenosis. L4-L5: The disc is bulging. There is moderate right and mild left facet joint osteoarthritis. There i s mild bilateral neural foraminal stenosis. There is mild central canal stenosis. L5-S1: The disc is bulging. There is severe bilateral facet joint osteoarthritis. There is mild bilat eral neural foraminal stenosis. There is mild central canal stenosis. IMPRESSION: 1. Mild lumbar spondylosis. Reviewed, dictated and finalized at location A. IMPRESSION: 1. Mild lumbar spondylosis.
--- NOTE | 2023-12-04 12:51 | ECG_ITS ---
Test Date: 2023-12-04 13:00:50 Measurements Intervals [place] Rate: 100 P: 21 [place]: 146 QRS: -4 QRSD: 88 T: 6 QT: 346 QTc: 448 Interpretive Statements SINUS TACHYCARDIA LOW-VOLTAGE QRS IN THE PRECORDIAL LEADS INCOMPLETE RIGHT BUNDLE BRANCH BLOCK ABNORMAL ECG No previous ECG available for comparison Electronically Signed On 12-04-2023 18:01:48 CDT by Adan Vance M.D.
--- NOTE | 2023-12-04 12:52 | ED.NEUROSD ---
HPI - Neuro Symptoms/Deficit General Chief Complaint: Neuro Symptoms/Deficit <Shannan Ochoa PA-C - Last Filed: 12/06/23 12:54> Stated Complaint: h/a, entire body numb, abd pain <Shannan Ochoa PA-C - Last Filed: 12/06/23 12:54> Time Seen by Provider: 12/04/23 12:53 <Shannan Ochoa PA-C - Last Filed: 12/06/23 12:54> Focused HPI: This is a 38-year-old female that presents to the emergency department for headache. Reports she has tingling all over her body. Reports abdominal pain and vomiting. Denies fever, focal numbness or weakness. GENERAL: Well-appearing, well-nourished, and in no acute distress. HEAD: Normocephalic, atraumatic. CHEST: Clear to auscultation. ?No respiratory distress. HEART: Regular rate and rhythm.? NEURO: ?Alert and oriented x3. Patient screened in triage and initial orders placed.? ?Additional care and disposition to be based upon?diagnostic testing and treatment. <Shannan Ochoa PA-C - Last Filed: 12/06/23 12:54> History of Present Illness HPI Narrative: 38-year-old female presenting with headache. States that she has had a headache off and on for the last week but it came back even worse today. States that she has numbness and tingling all over though it feels worse on the left side. No weakness. She took some Tylenol yesterday with minimal relief. She also complains of left-sided abdominal pain as well as left flank pain. No dysuria or hematuria. No further complaints. <Vikki Betancourt MD - Last Filed: 12/04/23 22:16> Related Data Allergies/Adverse Reactions: Allergies Allergy/AdvReac Type Severity Reaction Status Date / Time amoxicillin Allergy Severe amoxicillin Verified 12/04/23 12:41 ([id number]) peanut Allergy Severe peanut Verified 12/04/23 12:41 ([id number]) Sulfa (Sulfonamide Allergy Mild Sulfa Verified 12/04/23 12:41 Antibiotics) (Sulfonamide Antibiotics) ([id number]) cephalexin Allergy Unknown cephalexin Verified 12/04/23 12:41 ([id number]) Penicillins Allergy Unknown Penicillins Verified 12/04/23 12:41 ([id number]) azithromycin Allergy Hives Verified 12/04/23 12:41 latex AdvReac Mild Rash Verified 12/04/23 12:41 <Shannan Ochoa PA-C - Last Filed: 12/06/23 12:54> Review of Systems Review of Systems: All systems reviewed & are unremarkable except as noted in HPI and below <Vikki Betancourt MD - Last Filed: 12/04/23 22:16> [facility] Past Medical History Medical History: Medical History Tachycardia <Shannan Ochoa PA-C - Last Filed: 12/06/23 12:54> Social History Social History: Social History Smoking packs per day: 0.5 Smoking cigarettes per day: 10.0 Smoking status: Current every day smoker Tobacco type: cigarettes Alcohol intake: current Drinks per week: 2 Substance use: never Do You Feel Safe in your Home?: Yes Lack of Transportation: No Lack of Food: Never True Current Housing: I Have Housing Concerned About Future Housing: No Difficulty Paying Gas/Electric Bills: YES Difficulty Paying for Meds: No Currently Unemployed: No Education: Decline to Answer Difficulty w/ Childcare or Family Care: No Living arrangements: with family Occupation/Education: unemployed Gender identity (if verbalized by the patient): Female Sexual Orientation (if Verbalized by the Patient): Straight or Heterosexual Spiritual care concerns: No Agree to blood products: Yes <Shannan Ochoa PA-C - Last Filed: 12/06/23 12:54> Exam Narrative: GENERAL: Nontoxic, no acute distress HEAD: Normocephalic, atraumatic. EYES: PERRLA and EOMI. ENT: grossly unremarkable NECK: Supple. BACK: +L paraspinal tenderness lumbar region CHEST: Clear to auscultation. No respiratory distress. HEART: Regular rate and rhythm ABDOMEN: Soft, + left lower
[2023-12-04 13:13] LABS: Basophils Percent Auto 0.2 % (0.2-1.2); Eosinophils Absolute Auto 0.4 K/mm3 (0-0.3); Eosinophils Percent Auto 2.9 % (0-4.4); Hematocrit 41.4 % (37.0-47.0); Hemoglobin 13.4 g/dL (12.0-15.0); Immature Granulocyte Absolute 0.08 K/mm3 (0.00-0.031); Immature Granulocyte Percent A 0.7 % (0-0.5); Lymphocytes Absolute Auto 2.67 K/mm3 (0.9-3.2); Lymphocytes Percent Auto 22.4 % (18.3-44.2); Mean Corpuscular HGB Conc 32.4 g/dl (32-36); Mean Corpuscular Hemoglobin 25.9 pg (26-34); Mean Corpuscular Volume 79.9 fl (80-100); Mean Platelet Volume 9.4 fl (7.4-10.4); Monocytes Absolute Auto 0.6 K/mm3 (0.1-0.6); Monocytes Percent Auto 5.2 % (2.6-8.5); Neutrophils Absolute Auto 8.2 K/mm3 (1.3-6.7); Neutrophils Percent Auto 68.6 % (45.5-73.1); Platelet Count Result 276 k/mm3 (150-375); Red Blood Count 5.18 M/mm3 (4.2-5.4); Red Cell Distribution Width 14.6 % (11.5-14.5); White Blood Count 11.9 K/mm3 (4.5-10.0)
[2023-12-04 13:26] LABS: Alanine Aminotransferase 22 U/L (6-35); Albumin Level 4.2 g/dL (3.5-5.1); Alkaline Phosphatase 88 U/L (38-126); Anion Gap 10 mmol/L (4-12); Aspartate Amino Transferase 20 U/L (14-36); Bilirubin,Total 0.5 mg/dL (0.2-1.3); Blood Urea Nitrogen 13 mg/dL (7-17); Calcium 8.7 mg/dL (8.4-10.2); Carbon Dioxide 21 mmol/L (22-30); Chloride 106 mmol/L (98-107); Estimated CRCL calculation 123 ml/min; Estimated Glomerular Filt Rate > 60; Glucose 88 mg/dL (65-110); Lipase 70 U/L (23-300); Potassium 3.9 mmol/L (3.4-5.0); Sodium 137 mmol/L (137-145)
[2023-12-04 13:38] LABS: Troponin I < 0.012 ng/mL (0.000-0.034)
[2023-12-04 16:14] LABS: Add Urine Microscopic? YES; Appearance Urine Clear (Clear); Bacteria Urine None Seen /hpf; Bilirubin Urine Negative (Negative); Blood Urine 1+ (Negative); Color Urine Yellow (Yellow); Glucose Urine UA Negative (Negative); Ketones Urine Trace mg/dL (Negative); Leukocyte Esterase Ur Negative LEU/UL (Negative); Nitrate Urine Negative (Negative); Non Pathogenic Casts 0-2; Protein Urine Negative (Negative); Specific Grav Ur 1.021 (1.001-1.035); Squamous Epithelial Cell Urine Occasional /hpf (Few); Urobilinogen Urine 0.2 mg/dL (<2.0); WBC Urine 0-5 /hpf (0-3); pH Urine 5.5 (5.0-9.0)
[2023-12-04] MEDS: MORPHINE SULFATE (*CRX) 4 MG/ML INJ IV PUSH (17:07)
[2023-12-04] MEDS: SODIUM CHLORIDE 0.9% IV 1,000 ML 999 ML IV CONT (17:07)
[2023-12-04] MEDS: ONDANSETRON INJ 4 MG/2 ML VIAL IV PUSH (17:07)
[2023-12-04 17:09] LABS: Magnesium 2.1 mg/dL (1.6-2.3)
[2023-12-04] MEDS: levoFLOXacin 750 MG TABLET PO (19:21)
[2023-12-04] MEDS: metroNIDAZOLE 500 MG TABLET PO (19:21)
[2023-12-04] MEDS: KETOROLAC 30 MG/ML VIAL (*BKC) IV PUSH (20:49)
[2023-12-05 11:35] LABS: BEDSIDEPREGUCG Negative
== END 2023-12-04 22:11 | disposition home or self-care (01) ==
PROVIDERS: Physician Assistant; Emergency Provider Emergency Medicine
DX: K57.32 Diverticulitis of large intestine without perforation or abscess without bleeding (principal); R20.0 Anesthesia of skin; F17.210 Nicotine dependence, cigarettes, uncomplicated; R00.0 Tachycardia, unspecified; I45.10 Unspecified right bundle-branch block; M47.816 Spondylosis without myelopathy or radiculopathy, lumbar region
CPT/HCPCS: 36415; 70450; 72131; 74176; 80053; 81001; 81025; 83690; 83735; 84484; 85025; 93005; 96361; 96374; 96375; 99284; A9270; J1885; J2270; J2405; J7030

== ENCOUNTER 2024-04-10 18:25 | Emergency (ER) | payer OTHER, SELFPAY ==
[2024-04-10 19:20] VITALS: BP 102/87; PULSE 104; RESP 24; TEMP 36.8; O2SAT 100
== END 2024-04-10 23:49 | disposition left against medical advice (07) ==
PROVIDERS: PCP Nurse Practitioner Family
DX: R06.02 Shortness of breath (principal)
CPT/HCPCS: 99199

== ENCOUNTER 2024-05-02 13:28 | Emergency (ER) | payer OTHER, SELFPAY ==
--- NOTE | ~2024-05-02 | XR_ITS ---
EXAMINATION: XR chest 2V DATE: 05/02/2024 14:45 INDICATION: Chest pain. TECHNIQUE: Frontal and lateral views of the chest were obtained. COMPARISON: Chest 2 views 11/08/2022 FINDINGS: There is no pneumonia, pleural effusion, or pneumothorax. The heart size is normal. IMPRESSION: 1. No acute cardiopulmonary disease. Reviewed, dictated and finalized at location B. ER MACHINE OPERATOR
--- OUTSIDE RECORDS SUMMARY | 2024-05-02 13:31 | XMS_ITS | Referral Summary ---
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 15 tablet 11/15/2017 Active azithromycin (ZITHROMAX) 250 mg tablet Take 2 tablets the first day, then 1 tablet daily for 4 days 6 tablet 08/02/2022 Active HYDROcodone-maury taminophen (NORCO) 5-325 mg per tabletIndicatio ns:Pain Take 1-2 tablets by mouth every 4 (four) hours as needed for pain Do not exceed 8 tablets/day. 15 tablet 08/02/2022 Active Active Problems Problem Noted Date Diagnosed Date Syncope 08/23/2013 Overview (07/12/2016): Syncope Palpitations 08/23/2013 Overview (07/14/2016): PALPITATIONS Dizziness 08/23/2013 Overview (07/14/2016): Dizziness Social History Tobacco Use Types Packs/Day Years Used Date Smoking Tobacco: Every Day Smokeless Tobacco: Never Comments:Smoking History Pac ks/day: 0 Packs Alcohol Use Standard Drinks/Week Comments No 0 (1 standard drink = 0.6 oz pur e alcohol) Comments No Sex and Gender Information Value Date Recorded Sex Assigned at Not on file Legal Sex Female 3:37 AM 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 Gender Identity Not on file Sexual Orientation Not on file Last Filed Vital Signs Vital Sign Reading Time Taken Comments Blood Pressure 134/84 08/01/2022 11:32 PM CDT Pulse 90 08/02/2022 1:55 AM CDT Temperature 37.3 ??C (99.1 ??F) 08/01/2022 11:31 PM C DT Respiratory Rate 18 08/02/2022 1:55 AM CDT Oxygen Saturation 100% 08/02/2022 1:55 AM CDT Inhaled Oxygen Concentration - - Weight 99.8 kg (220 lb) 08/01/2022 11:31 PM CDT Height 160 cm (5' 3 ) 11/15/2017 5:47 PM CDT Body Mass Index 38.97 11/15/2017 5:47 PM CDT Plan of Treatment Not on file Insurance [facility] Care Teams Is Manager Relationship Specialty Start Date End Date Unknown, Notinfile PCP - General 11/15/17
--- OUTSIDE RECORDS SUMMARY | 2024-05-02 13:31 | XMS_ITS | Data Portability ---
Author Organization [facility] Address [address] [place] [address] Care Team Providers Care Offc Spec Name Role Phone TDOD SANCHEZ Primary Care Provider Assessment Encounter Date Assessment Date Assessment LastModified by Organization Details LastModified Time 03/05/2024 03/05/2024 Annual gynecological exam performed. Patient will come back in a year unless there are new symptoms. Not available 03/05/2024 14:51:05 Plan of Treatment Reminders Order Date Submit Date Provider Last Modified By Organization Details Last Modified Time Details Appointments None recorded. Lab hbcab (hepatitis B core Ab) igm, serum 2023 [facility] (Lab), [address] , [place], [address], 4 18:44:13 HBsAg (hepatitis B surface Ag), serum 2023 [facility] (Lab), [address], [place], [address], 4 18:44:12 hepatitis C virus Ab, serum 2023 [facility] (Lab), [address], [place], [address], 4 18:44:13 HIV 1+2 AB + HIV 1 p24 Ag, qualitative immunoassay , serum 2023 024 [facility] (Lab), [address] [place], [address], 4 18:44:12 RPR (rapid plasma reagin), serum 2023 [facility] (Lab), [address], [place], [address], 4 18:44:13 test, urine 2023 [place], [facility] [address], [address], [place], [address], 16:23:00 Referral None recorded. Procedures None recorded. Surgeries None recorded. Imaging MAMMO, diagnostic, digital, bilateral 2023 [facility], [address], [place], [address], 04:02:22 US, breast, unilateral - left 2023 [facility], [address], [place], [address], 04:02:22 Medication Orders None recorded. Patient TargetsNo targets recorded. Patient InstructionsNo instructions recorded. Reason for Referral None Reported. Results Created Date Observation Date Name Description Value Unit Range Abnormal Flag Note LastModifiedBy Organization Detail LastModifiedTime 03/05/2003/05/2024 HIV 1/2 ANTIG EN/AN TIBOD Y, REFLE X CONFI RMATI ON HIV antigen/anti body Nonrea ctive nonrea ctive HIV-1 antig en and HIV-1 /HIV- 2 antib odies were not detec jamie. No labor atory evide nce of HIV infec tion. Not Available [facility] (Lab) [address], [place], [address], 03/07/2024 17:05:49 03/05/20 24 03/05/2024 HEPAT ITIS B SURFA CE ANTIG EN hepatitis B surface antigen Non-re active non-re active This assay was perfo rmed using [employer] ratio n reage nts and test kits. Value s obtai julio c with other assay metho ds or kits canno t be used inter valdez eably . Not Available [facility] (Lab) [address], [place], [address], 03/07/2024 17:05:49 03/05/20 24 03/05/2024 HEPAT ITIS C ANTIB TOMMY SCREE N, REFLE X TO CONFI RMATI ON hepatitis C antibody Non-re active non-re active Antib odies to HCV Not Detec jamie, does not exclu de the possi bilit y of expos ure to HCV. Not Available [facility] (Lab) [address], [place], [address], 03/07/2024 17:05:50 03/05/20 24 03/05/2024 RPR SCREE N, REFLE X TITER /CONF IRMAT ION RPR screen Nonrea ctive nonrea ctive Not Available [facility] (Lab) [address], [place], [address], 03/07/2024 17:05:50 03/05/20 24 03/05/2024 HEPAT ITIS B CORE, IGM hepatitis B core IgM antibody Non-re active non-re active IgM anti- HBc not detec jamie. Does not exclu de the possi bilit y of expos ure to or infec tion with HBV. Not Available [facility] (Lab) [address] [place], [address], 03/07/2024 17:05:50 03/05/20 24 03/05/2024 IMAGE GUIDE D PAP AND HPV REGAR DLESS image guided Pap, HPV regardless of Pap result SEE RESULT S BELOW CASE REPOR T: Cytol ogy Gynec ologi brian Repor t Case: [id number] Autho rikelin g Provi ana: June Oscar, RENE Colle cted: 03/05 1629 Order ing Locat ion: [place] [facility] Recei bertin: 03/07 1359 First Scree n: Jose lamb, Malena presley, CT Rescr een: Balbina Helms, CT Speci men: Carl gao Pap - Image d, Cervi x STATE MENT OF ADEQU ACY: Satis facto ry for evalu ation Trans forma tion zone compo nent absen t The absen ce of an endoc ervic al compo nent was confi rmed by an addit ional scree ner. ----- ----- ----- ----- ----- ----- ----- ----- ----- ----- ----- ----- ----- ----- ----- ----- ----- ---- FINAL DIAGN OSIS: Negat jw for Intra epith elial Albert whelan or Danette arias (NIL) . Elect parth peñaloza by Balbina Helms, CT on 03/19 at 12:17 PM ----- ----- ----- ----- ----- ----- ----- ----- ----- ----- ----- ----- ----- ----- ----- ----- ----- ---- HPV RESUL TS: HPV mRNA E6/E7 : No HPV mRNA Detec jamie NOTE: This high risk HPV mRNA assay detec ts fourt een high- risk HPV types (16, 18, 31, 33, 35, 39, 45, 51, 52, 56, 58, 59, 66, 68) witho ut diffe renti ation . COMME NT: This speci men was revie wed by a Cytot echno logis t and/o r Patho logis t (as indic ated in this repor t) after evalu ation using the Thinp rep Imagi ng Syste m. CLINI BRIAN INFOR MATIO N: Menst rual Statu s: LMP (if appli cable ): Clini brian Histo ry/Pr eviou s Pap: Type of Neopl linda (if appli cable ): Signi fican t Clini brian Findi ngs: Other Histo ry: Hormo elliott (if appli cable ): PAP EDUCA PEDRITO L NOTE: The Pap Test is a scree sima test with an inher ent false negat jw rate. Liqui d-bas ed sampl ing may decre ase, but will not elimi denver, false negat jw resul ts. A negat jw resul t does not precl ude the prese nce and/o r devel opmen t of disea se, since the prese nce of abnor mal cells in the sampl e depen ds on the locat ion of the lesio n and sampl ing techn ique. Chary nued regul ar scree sima is the best metho d of cance r preve ntion . If repor jamie cytol ogic findi ng do not corre late with physi brian and/o r histo rical findi ngs, furth er inves tigat ion is recom robert d, as clini kaden warra nted. Not Available [facility] (Lab) [address], [place], [address], 03/19/2024 13:20:38 03/05/20 24 03/05/2024 TRICH OMONA S VAGIN DEBBIE (RRNA ) trichomonas vaginalis ribosomal RNA (rrna) Negati ve negati ve Not Available [facility] (Lab) [address], [place], [address], 03/19/2024 13:20:39 03/05/20 24 03/05/2024 CT/GC (SLADE) , THINP REP VIAL chlamydia trachomatis, PCR Negati ve negati ve Not Available [facility] (Lab) [address], [place], [address], 03/19/2024 13:20:39 03/05/20 24 03/05/2024 CT/GC (SLADE) , THINP REP VIAL neisseria gonorrhoeae, PCR Negati ve negati ve Not Available [facility] (Lab) [address], [place], [address], 03/19/2024 13:20:39 03/05/20 24 03/05/2024 pregn agustín test, urine HCG negati ve Not Available [address], [place], [address], 03/05/2024 16:22:50 Result Notes None recorded. Problems Name Problem SNOMED Code Status Onset Date Resolution Date Notes Provider Name and Address Organization Details Recorded Time Normal in multigrav estelita 44110161561 4106 Active 2016 Encounter for suprvsn of normal , third trimester ;Practice ID: 0001 Not Available [facility] 0 19:02:05 Gestation period, 36 weeks 95803911 Active 2016 36 weeks gestation of ;Practice ID: 0001 Not Available [facility] 0 19:02:05 Uterine size for dates discrepan cy Active 2016 Uterine size-date discrepan cy, third trimester ;Practice ID: 0001 Not Available [facility] 0 19:02:06 Gestation period, 39 weeks 02484829 Active 2016 39 weeks gestation of ;Practice ID: 0001 Not Available [facility] 0 19:02:06 Uterine scar from previous surgery affecting 57267516 Active 2016 Matern care for low transvers e scar from prev del;Pract ice ID: 0001 Not Available [facility] 0 19:02:06 False labor at or after 37 completed weeks of gestation 810292961 Active 2016 False labor at or after 37 completed weeks of gestation ;Practice ID: 0001 Not Available [facility] 0 19:02:06 Gestation period, 38 weeks 97998403 Active 2016 38 weeks gestation of ;Practice ID: 0001 Not Available [facility] 0 19:02:06 Gestation period, 31 weeks 99813790 Active 2016 31 weeks gestation of ;Practice ID: 0001 Not Available [facility] 0 19:02:06 Secondary amenorrhe a 045966938 Active 2015 Secondary amenorrhe a;Recorde d Elsewhere : No Locati on: [facility] So urce: EHR Chron ic: N Practic e ID: 0001 Bill able Time: 01:00:00 PM Not Available [facility] 0 19:02:06 Gestation period, 23 weeks 17217088 Active 2015 23 weeks gestation of ;Recorded Elsewhere : No Locati on: [facility] So urce: EHR Chron ic: N Practic e ID: 0001 Bill able Time: 11:00:00 AM Not Available [facility] 0 19:02:06 Body mass index 30+ - obesity 466134059 Active 2015 Body mass index (BMI) 36.0-36.9 , adult;Rec orded Elsewhere : No Locati on: [facility] So urce: EHR Chron ic: N Practic e ID: 0001 Bill able Time: 01:00:00 PM Not Available [facility] 0 19:02:07 Single liveborn born in hospital by section 351594940 Active 2016 Single liveborn delivered by c section;R ecorded Elsewhere : No Locati on: [facility] So urce: EHR Chron ic: N Practic e ID: 0001 Bill able Time: 02:00:00 PM Not Available [facility] 0 19:02:07 Low back pain 723452050 Active 2015 Low back pain;Garrick rded Elsewhere : No Locati on: [facility] So urce: EHR Chron ic: N Practic e ID: 0001 Bill able Time: 11:00:00 AM Not Available [facility] 0 19:02:07 Gestation period, 10 weeks 63093610 Active 2015 10 weeks gestation of ;Recorded Elsewhere : No Locati on: [facility] So urce: EHR Chron ic: N Practic e ID: 0001 Bill able Time: 01:00:00 PM Not Available [facility] 0 19:02:07 Single live 887666775 Active 2016 Single live ;Pra ctice ID: 0001 Not Available [facility] 0 19:02:07 Steriliza tion procedure Active 2016 Encounter for steriliza tion;Prac poly ID: 0001 Not Available [facility] 0 19:02:07 Lochia finding Active 2016 Encounter for routine postpartu m follow-up ;Practice ID: 0001 Not Available [facility] 0 19:02:07 Complicat ion of , childbirt h and/or puerperiu m 038032157 Active 2016 Oth diseases and condition s compl preg/chld brth;Prac poly ID: 0001 Not Available [facility] 0 19:02:08 Backache 151363163 Active 2016 Dorsalgia , unspecifi ed;Renéeti ce ID: 0001 Not Available [facility] 0 19:02:08 Disease of the digestive system complicat ing , childbirt h and/or the puerperiu m 792152355 Active 2016 Diseases of the dgstv sys comp , third trimester ;Practice ID: 0001 Not Available [facility] 0 19:02:08 Finding by site Active 2016 Dermatiti s;Recorde d Elsewhere : No Locati on: [facility] So urce: EHR Chron ic: N Practic e ID: 0001 Bill able Time: 09:30:00 AM Not Available [facility] 0 19:02:[address] Concept Active 2015 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) (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) w/o abn findings; Recorded Elsewhere : No Locati on: [facility] So urce: EHR Chron ic: N Practic e ID: 0001 Bill able Time: 01:00:00 PM Not Available [facility] 0 19:02:09 detection examinati on Active 2015 Encounter for test, result positive; Practice ID: 0001 Not Available [facility] 0 19:02:09 Notes:Encounter for antenata l screening of mother Recorded Elsewhere: No Location: [facility] Source: EHR Chronic: N Practice ID: 0001 Billable Time: 10:00:00 AM Encounter for screening of mother Practice ID: 0001 Encounter for screening of mother Recorded Elsewhere: No Location: [facility] Source: EHR Chronic: N Practice ID: 0001 Billable Time: 03:15:00 PM Encounter for screening of mother Practice ID: 0001 Problem Notes None recorded. Procedures Surgical History Date Name Laterality Status Provider Name and Address Organization Details Recorded Time 7 Caesarean Section completed Nicole Amin [facility] 03/05/2024 14:59:36 7 Tubal Ligation completed Nicole Amin [facility] 03/05/2024 14:59:49 5 tonsilectomy/a denoids completed Nicole [facility] 03/05/2024 15:00:15 3 Caesarean Section completed [facility] 03/05/2024 14:59:32 Imaging Results None recorded. Procedure Notes None recorded. Medical Equipment None Reported. Allergies Allergen ID Allergen Name Allergen Category Reaction Reaction Severity Criticality Documentation Date Start Date Code Code System Note Provider Name and Address Organization Details Recorded Time 58059 peanut allergeni c extract food,medi cation Not available Not available Not available 03/26/2020 26580 8 RxNorm Comme nt: Locat ion: [facility]; Not Available [facility] 0 14:17:45 34065 aspirin medicatio n Not available Not available Not available 03/26/2020 1191 RxNorm Comme nt: Locat [facility]: [facility]; [facility] Available [facility] 0 14:17:45 63944 Substance with sulfonami de structure and antibacte rial mechanism of action (substanc e) medicatio n Not available Not available Not available 03/26/2020 02001 8003 SNOMED Comme nt: Locat ion: [facility]; Not Available [facility] 0 14:17:45 38823 doxycycli ne Not available dizziness moderate Not available 03/05/2024 3640 RxNorm Nicole Abner [facility] 4 14:51:56 82361 azithromy wilson medicatio n hives moderate Not available 03/05/2024 03472 RxNorm Nicole Amin cristofer, [facility] 4 14:51:56 77572 amoxicill in medicatio n anaphylax is severe Not available 03/05/2024 723 RxNorm Nicole Amin cristofer, [facility] 4 14:51:56 17128 Penicilli n Not available anaphylax is severe Not available 03/05/2024 60561 RxNorm Nicole Amin cristofer, [facility] 4 14:51:56 Medications Name Sig Start Date Stop Date Status Note LastModified by Organization Details LastModified Time cyclobenz aprine 10 mg tablet take 1 tablet by oral route 2 times every day 03/05 completed Prescrib ed Elsewher e: No Locat ion: [facility] odify By: sang solomon DateTime : 01/28/20 16 02:55:11 PM Not Available Not Available Not Available prednison e 10 mg tablet PLEASE SEE ATTACHED FOR DETAILED DIRECTIO NS 03/05 completed Not Available Not Available Not Available doxycycli ne hyclate 100 mg capsule TAKE 1 CAPSULE BY MOUTH TWICE A DAY 03/05 completed Not Available Not Available Not Available ondansetr on HCl 4 mg tablet TAKE 1 TABLET BY MOUTH EVERY 8 HOURS 03/05 completed Not Available Not Available Not Available metronida zole 500 mg tablet TAKE 1 TABLET (500 MG) BY MOUTH EVERY 12 HOUR FOR 7 DAYS 03/05 completed Not Available Not Available Not Available acetamino phen 500 mg tablet TAKE 2 TABLETS (1000 MG) BY MOUTH EVERY 8 TO 10 HOURS NEEDED FOR FEVER OR PAIN 03/05 completed Not Available Not Available Not Available meloxicam 7.5 mg tablet TAKE 2 TABLETS BY MOUTH ONCE DAILY FOR 7 DAYS 03/05 completed Not Available Not Available Not Available betametha sone valerate 0.1 % topical cream apply by topical route every day a thin layer to the affected area(s) 03/05 completed Prescrib ed Elsewher e: No Locat ion: [facility] odify By: sang solomon DateTime : 07/07/19 17 09:30:00 AM Not Available Not Available Not Available pantopraz ole 40 mg tablet,de layed release TAKE 1 TABLET BY MOUTH EVERYDAY AT BEDTIME FOR 4 WEEKS 03/05 completed Not Available Not Available Not Available triamcino lone acetonide 0.025 % topical ointment APPLY THIN TOPICAL LAYER TO AFFECTED AREA 3 TIMES A DAY FOR UP TO 7 DAYS. 03/05 completed Not Available Not Available Not Available ibuprofen 600 mg tablet TAKE 1 TABLET (600 MG) BY MOUTH 3 TIMES DAILY NEEDED FOR FEVER OR PAIN 03/05 completed Not Available Not Available Not Available levofloxa wilson 750 mg tablet TAKE 1 TABLET BY MOUTH EVERY DAY 03/05 completed Not Available Not Available Not Available methylpre dnisolone 4 mg tablets in a dose pack TAKE PER PACKAGE INSERT 03/05 completed Not Available Not Available Not Available ondansetr on 4 mg disintegr ating tablet DISSOLVE 1 TABLET ON THE TONGUE EVERY 8 HOURS NEEDED FOR NAUSEA AND VOMITING 03/05 completed Not Available Not Available Not Available naproxen 375 mg tablet,de layed release TAKE 1 TABLET BY MOUTH TWICE DAILY NEEDED WITH FOOD 03/05 completed Not Available Not Available Not Available nitrofura ntoin monohydra te/macroc rystals 100 mg capsule TAKE 1 CAPSULE BY MOUTH EVERY 12 HOURS FOR 10 DAYS 03/05 completed Not Available Not Available Not Available naloxone 4 mg/actuat ion nasal spray CALL 911. ADMINIST ER A SINGLE SPRAY INTRANAS ALLY INTO ONE NOSTRIL UPON SIGNS OF OPIOID OVERDOSE . MAY REPEAT AFTER 3 MINUTES IF NO RESPONSE . 03/05 completed Not Available Not Available Not Available Vitals Date Recorded Body height Body mass index (BMI) Body weight Systolic blood pressure Diastolic blood pressure Provider Name and Address Organization Details Last Updated DateTime 03/05/2024 154.94 cm 41.9 kg/m2 018440.5 1 g 133 mm[Hg] 93 mm[Hg] Nicole Amin [place] [facility] 11/27/202 4 14:52:59 Social History Question Answer Notes LastModified by Organizat ion Details LastModified Time Do You Have An Advance Directive? No Information not available 03/05/2024 What Is Your Level Of Alcohol Consumption? Occasional Information not available 03/05/2024 Are You Blind Or Do You Have Difficulty Seeing? No Information not available 03/05/2024 What Is Your Level Of Caffeine Consumption? Occasional Information not available 03/05/2024 How Much Tobacco Do You Chew? None Information not available 03/05/2024 In The 14 Days Before Symptom Onset, Have You Had Close Contact With A Laboratory-confir med COVID-19 While That Case Was Ill? No Information not available 03/05/2024 In The 14 Days Before Symptom Onset, Have You Had Close Contact With A Person Who Is Under Investigation For COVID-19 While That Person Was Ill? No Information not available 03/05/2024 Have You Been To An Area Known To Be High Risk For COVID-19? No Information not available 03/05/2024 Are You Deaf Or Do You Have Serious Difficulty Hearing? No Information not available 03/05/2024 What Type Of Diet Are You Following? REGULAR Information not available 03/05/2024 What Is The Highest Grade Or Level Of School You Have Completed Or The Highest Degree You Have Received? 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 No Information not available 03/05/2024 Do You Use Protection During Sex? No Information not available 03/05/2024 Do You Use Your Seat Belt Or Car Seat Routinely? Yes Information not available 03/05/2024 Do You Have Smoke And Carbon Monoxide Detectors In Your Home? Yes Information not available 03/05/2024 How Much Tobacco Do You Smoke? 0.5 PPD Information not available 03/05/2024 Do You Feel Stressed (tense, Restless, Nervous, Or Anxious, Or Unable To Sleep At Night)? [id number] Information not available 03/05/2024 Do You Use Any Illicit Or Recreational Drugs? No Information not available 03/05/2024 Do You Use Sunscreen Routinely? No Information not available 03/05/2024 Sex: Unknown Functional Status Question Answer Note LastModified by Organizat ion Details LastModified Time Are you able to walk? YESWOREST Information not available 03/05/2024 What is your exercise level? Occasional Information not available 03/05/2024 Mental Status None recorded. Family History Relationship Description Onset Age of this Age Resolved Age Notes LastModified by Organization Details LastModified Time Brother Heart disease Not available 2023 14:57:28 Maternal Aunt Heart disease Not available 2023 14:57:28 Maternal Aunt Malignant tumor of breast Not available 2023 14:57:45 Maternal Grandmother Heart disease Not available 2023 14:57:28 Maternal Grandmother Malignant tumor of breast Not available 2023 14:58:42 Mother Hypertensive disorder Not available 2023 14:58:08 Father Hypertensive disorder Not available 2023 14:58:08 Maternal Grandfather Hypertensive disorder Not available 2023 14:58:08 Paternal Uncle Diabetes mellitus Not available 2023 14:59:06 Paternal Grandmother Diabetes mellitus Not available 2023 14:59:06 Notes:Brother: Heart disease , Psychiatric disease, Pulmonary embolism Father: Hyperlipidemia, Hypertension, Psychiatric disease Maternal aunt: Hypertension, Heart disease, Psychiatric disease, PTSD, Cancer, breast Maternal grandfather: Hyperlipidemia, Heart disease, Hypertension, Seizure disorder, Psychiatric disease Maternal grandmother: Heart disease, Cancer, lung, Cancer, uterine Maternal uncle: PTSD, Hypertension, Psychiatric disease, Heart disease Mother: PTSD, Psychiatric disease, Hypertension, Hyperlipidemia, Ovarian cyst Paternal aunt: Psychiatric disease, Hypertension, Heart disease, Diabetes mellitus Paternal grandfather: Hypertension, Psychiatric disease, Hyperlipidemia Paternal grandmother: Diabetes mellitus, Heart disease Paternal uncle: Diabetes mellitus, Hypertension, Psychiatric disease, Heart disease Medical History Condition Response Allergies (Food, seasonal, environmental ) N Other N Breast Cancer N Drug/Latex Allergies/Reactions N Blood Transfusion N Dermatologic Disorders N Lung Disease N Defects or Inherited Disease N Breast Problem N Gestational Diabetes N Hematologic disorders N Anesthesia Complications N History of STI Y Deep Vein Thrombosis N Polycystic ovary syndrome N Anxiety Disorder N Autoimmune disease N Arthritis N Infertility N Polyps N Acid Reflux (GERD) N History of abnormal pap Y Cancer N Stroke N Varicosities N Neurologic/Epilepsy N Endometriosis N High Cholesterol N Headaches N Fibromyalgia N Kidney Disease N Heart Problems Y Kidney or Bladder Problems N Thyroid Problems N GI Problems N Eating Disorder N Anemia N Art (IVF or FET) N Psychiatric Illness Y Ovarian Cancer N Diabetes N Pulmonary (TB, Asthma) N Hepatitis/Liver Disease N No Past Medical History N Eczema N Urinary Tract Infection N Abuse/Domestic Violence N Asthma N Trauma/Violence N Depression/ depression N Heart Disease N Pre-Eclampsia N Hypertension N Osteoporosis N Thrombophilias N Gynecological History Statement/Question Response Abnormal Pap Y Flow Moderate Date of LMP 02/04/2024 N Was last menstrual period normal Y STIs/STDs Y HPV Vaccine Y Duration of Flow (days) 4 Current Control Method Tubal Ligat ion Age at First Child 17 Are cycles usually normal Y Frequency of Cycle (Q days) 29 Sexually Active? Y Menses Monthly Y Age of first menstrual cycle 9 Date of Last Pap Smear Sexual Problems? N LMP Definite N Obstetrics History GPAL:G 2 P 0 0 0 2 Type Value Living 2 Total 2 Past Encounters Encounter ID Performer Location Encounter Start Date Encounter Closed Date Diagnosis/Indication Diagnosis SNOMED-CT Code Diagnosis ICD10 Code Diagnosis Note [id number] [facility] [place] [address] [address] 03/05/2024 14:45:17 03/05/2024 16:33:57 Gynecologic examination 18010318 Z01.419 [facility] - updatedSTI screen - gc/ct/tric h testing added to pap, HIV/Hep B&C/Syphil is testing ordered per pt requestRou shirley labs - UTD/PCPBP precaution s discussed, encouraged PCP f/uRTC in 1 yr or sooner if needed It is strongly advised to have an annual flu shot and up can obtain at most pharmacies . If you have not had a TDap shot in the last 10 years you should obtain one as well. Discussed with patient & provided with informatio n regarding the HPV vaccine if applicable . Encourage safe sexual practices, to use condoms and limit partners if not already in a monogamous relationsh ip. Do monthly self breast exams. BRCA testing is now available for patients with strong genetic history of female cancer. If interested contact the office. Engage in regular exercise. Avoid tobacco and illicit drugs. This lifestyle behavior pattern will lead to less health conditions and longer life span. If BMI greater than 25 dietary consult advised. Questions answered. Pain of breast 11880047 N64.4 left diagnostic mammogram and breast u/s ordered Screening for malignant neoplasm of breast [id number] Z12.39 Sexually t ransmitted infectious disease [id number] A64 Irregular periods [id number] N92.6 Health Concerns Section Related Observation LastModified by Organization Detai ls LastModified Time None Recorded Concern Status LastModified by Organization Details LastModified Time None Recorded Advance Directives Directive N: Payers Encounter Date Sequence Insurance Name Policy Number Policy Pires Covered Member ID Pires Member ID Guarantor Name 03/05/2024 1 [facility] - DOS ON OR AFTER 20 (MEDICAID REPLACEMENT - HMO) Carmen Lazar [id number] Carmen Lazar Notes Date Note Type Note Provider Name and Address Organization Details Recorded Time 03/05/2024 text/html Annual GYNReport ed bypatient.Menstrua l cycle:Normal menses Urinary symptoms:No hematuria; No incontinence Vulva:No genital lesion Vagina:Normal vaginal discharge Breast:No breast lump; No nipple discharge;Breast pain Current Contraception:Sati sfied with current contraception; Tubal ligation Sexual complaints:No sexual complaints; No pain during intercourse; Normal libido Menopausal Symptoms:No menopausal symptoms; Normal vaginal lubrication Psychological symptoms:No depression; No anxiety; No PMDD Preventive measures:Encourage self breast examination; Encourage regular exercise; Encourage no tobacco use; Encourage regular mammograms starting age 41Notes:39yo wweBC - BTLh/o abnormal paps - no procedures needed per ptlast pap around 3 yrs ago - normal per pt left breast pain x 3 months would like UPT done today [facility] [address], [place], [address], [place] [facility] 03/05/2024 16:33:16 OBGyn Episode Ob Episode Information Episode Created Date Number of Fetuses Patient Bloodtype Patient rh Status Prepregnancy Weight lbs Domestic Partner Domestic Partner Phone Father Name Turbo Generator Oiler Status 03/05/20 24 1 CLOSED Fetus Data First Name Last Name Admitted to NICU Weight (g) Sex Living Outcome Pediatric Complications Fetus ID Race Codes Race Delivery Type F Full Term [id number] Repeat Javon Calculation Initial Javon Date Initial Exam Date Initial Exam Provider Initial Ultrasound Date Last Menstrual Period Date Ultra Sound Weeks Gestation 0 Eighteen To Twenty Week Javon Update Ultra Sound Date Fundal Height At Umbil Quickening Date Ultra Sound Latest Weeks Gestation Final Javon Confirmed By Final Javon Confirmed Date Final Javon Date Ultra Sound Latest Days Gestation 0 0 Menstrual History Last Menstrual Date Menses Monthly On Bcp Conception Prior Menses Frequency Hcg Plus Date Menarche Onset Age Delivery Information Delivery Date Delivery Type Labor Anesthesia Weeks Gestation Incision Type Labor Labor Length Hrs Delivered By Post Complications Tubal Sterilization Discharge Date Comments 7 38 Discharge Information Feeding Method Contraceptive Method Maternal HG B and HCT Levels Ob Episode Information Episode Created Date Number of Fetuses Patient Bloodtype Patient rh Status Prepregnancy Weight lbs Domestic Partner Domestic Partner Phone Father Name Turbo Generator Oiler Status 03/05/20 24 1 CLOSED Fetus Data First Name Last Name Admitted to NICU Weight (g) Sex Living Outcome Pediatric Complications Fetus ID Race Codes Race Delivery Type F Full Term [id number] Primary Javon Calculation Initial Javon Date Initial Exam Date Initial Exam Provider Initial Ultrasound Date Last Menstrual Period Date Ultra Sound Weeks Gestation 0 Eighteen To Twenty Week Javon Update Ultra Sound Date Fundal Height At Umbil Quickening Date Ultra Sound Latest Weeks Gestation Final Javon Confirmed By Final Javon Confirmed Date Final Javon Date Ultra Sound Latest Days Gestation 0 0 Menstrual History Last Menstrual Date Menses Monthly On Bcp Conception Prior Menses Frequency Hcg Plus Date Menarche Onset Age Delivery Information Delivery Date Delivery Type Labor Anesthesia Weeks Gestation Incision Type Labor Labor Length Hrs Delivered By Post Complications Tubal Sterilization Discharge Date Comments 3 41 Discharge Information Feeding Method Contraceptive Method Maternal HG B and HCT Levels
--- OUTSIDE RECORDS SUMMARY | 2024-05-02 13:31 | XMS_ITS | Data Portability ---
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 She states she did not strike her left knee on the street. We talked about treatment options today in detail we are going to set her up with a course of physical therapy for range of motion strengthening we will give her a course of oral prednisone and a shot of cortisone she wanted proceed therefore under sterile conditions I injected the patient's left knee joint in the office with 4 cc 0.5% Marcaine and 20 mg of Kenalog. The patient tolerated the procedure well. I will see her back in 6-8 weeks see how she is doing if her symptoms continue an MRI scan may be indicated we will see how she does with the above conservative measures. She voiced understanding agrees above plan she will call for any further problems difficulties or questions. Not available 10/26/2023 16:05:53 12/13/2023 12/13/2023 The patient has continuing left knee pain after initial injury 6 weeks ago and now more pain after another popping episode in the knee going down stairs. The patient could have meniscal pathology or previous x-rays do not show any significant osteoarthritis no fracture lesion or mass. She may have meniscal pathology I have recommended getting her into therapy we will see if we can get her scheduled here at our office she was having trouble getting into [facility]. In the meantime we will also get an MRI scan of her left knee she will see Dr. Wright for follow-up and further recommendation from there. The patient voiced understanding agrees above plan she will call for any further problems difficulties or questions. Not available 12/13/2023 10:39:00 01/02/2024 01/02/2024 38-year-old female presents for evaluation of her left knee. She reports an injury and the end of November when she fell down a flight of stairs, and since then has had pain and popping. She does report that she had previous falls about a year ago and her knee has been bothering her since then, and the fall down the stairs just aggravated it. She has giving out whenever she tries to turn or twist and she thinks that is what happened down the stairs as well. She has done some physical therapy, taking some ibuprofen naproxen, without significant improvement. She rates her pain as 5/10. She has a history of tachycardia, sees a patent agent. She smokes 5 cigarettes per day. Review of systems per patient questionnaire Physical exam: She has antalgic gait. Tenderness palpation of medial joint line. Range of motion 0-120. 2B Radha's. Positive Keely's. 1+ effusion. MRI was reviewed, demonstrating a tear of the ACL and tear of the posterior body of the medial meniscus . No pivot shift contusion. She has an ACL tear as well as a medial meniscus tear. This is likely a acute on chronic injury given her history. I would recommend ACL reconstruction with partial medial meniscectomy. However, she needs to stop smoking 1st and take a nicotine test. We discussed the effects of nicotine on healing and the increased risk of complications including infection and retear. In the meantime, we will get her a playmaker brace to help with the ACL tear and meniscus tear. She should continue doing the physical therapy exercises and taking anti-inflammatori es. She will call us back when she has quit nicotine and is ready to proceed with surgery. [email or web address] Not available 01/02/2024 16:46:35 Plan of Treatment Reminders Order Date Submit Date Provider Last Modified By Organization Details Last Modified Time Details Appointments None recorded. Lab urinalysis complete, reflex culture 2022 023 [facility] (Lab), [address] [place], [address], 3 07:48:52 lipid panel, serum 2022 023 [facility] (Lab), [address] [place], [address], 3 20:31:54 hepatic function panel, serum 2022 023 [facility] (Lab), [address] [place], [address], 3 20:31:59 CBC w/ auto diff 2022 023 [facility] (Lab), [address] [place], [address], 3 20:06:57 TSH, serum or plasma 2022 023 [facility] (Lab), [address] [place], [address], 3 20:59:48 iron + total iron-juanita ng capacity (TIBC), serum 2022 023 [facility] (Lab), [address] [place], [address], 3 20:20:13 ferritin, serum or plasma 2022 023 [facility] (Lab), [address] [place], [address], 3 21:00:02 vitamin B12, serum 2022 023 [facility] (Lab), [address] [place], [address], 3 01:13:02 glycohemog lobin, total, blood 2022 023 [facility] (Lab), [address] [place], [address], 3 20:46:02 BMP, serum or plasma 2022 023 [facility] (Lab), [address] [place], [address], 3 20:32:09 vitamin D, 25-hydroxy , total, serum 2022 023 [facility] (Lab), [address] [place], [address], 3 02:32:32 cotinine, quantitati ve, urine 2023 024 [email or web address] [facility] (Lab), [address] [place], [address], 4 11:54:30 Referral physical therapist referral - please contact patient to schedule 2023 024 [facility], [address] [place], [address], 4 16:30:43 physical therapist referral - Please contact patient to schedule 2023 024 [email or web address] [facility], [address], [place], [address], 4 08:09:44 Procedures injection/ aspiration joint/burs a (PROC) - in office procedure, administer ed by provider 2023 024 [email or web address] In-Office Order, Internal Use Only DO Not Attach Compendium DO Not Attach Compendium, Do Not Delete/merge, [id number] 4 15:53:43 Surgeries None recorded. Imaging MRI, knee, w/o contrast 2023 024 [facility] ([facility]), [address], [place], [address], 4 15:29:39 Medication Orders cetirizine 10 mg tablet 2022 023 [email or web address] [facility]/Pharmacy #[id number], [address] [facility], [place], [address], 4 10:13:11 EpiPen 2-Mikey 0.3 mg/0.3 mL injection, auto-injec tor 2022 023 [id number], [address], [place], [address], 3 10:46:58 prednisone 20 mg tablet 2022 023 [email or web address]/Pharmacy #[id number], [address] [place], [address], 4 10:15:32 doxycyclin e hyclate 100 mg capsule 2022 023 [email or web address] [facility]/Pharmacy #[id number], [address] [place], [address], 4 10:13:27 albuterol sulfate HFA 90 mcg/actuat ion aerosol inhaler 2022 023 [facility]/Pharmacy #[id number], [address] [place], [address], 3 10:46:39 Marcaine (PF) 0.5 % (5 mg/mL) injection solution 2023 024 [email or web address] [facility]/Pharmacy #[id number], [address] [place], [address], 4 10:13:42 Kenalog 10 mg/mL suspension for injection 2023 024 [email or web address] [facility]/Pharmacy #[id number], [address], [place], [address], 4 10:13:35 prednisone 10 mg tablets in a dose pack 2023 024 [email or web address] [facility]/Pharmacy #[id number], [address], [place], [address], 4 10:15:26 Patient TargetsNo targets recorded. Patient InstructionsNo instructions recorded. Reason for Referral Physical Therapist Referral for Pain of left knee joint please contact patient to schedule Referring Physician: [facility], Encounter Date: 10/26/2023 Physical Therapist Referral for Pain of left knee joint Please contact patient to schedule Referring Physician: [facility], Encounter Date: 12/13/2023 Results Created Date Observation Date Name Description Value Unit Range Abnormal Flag Note LastModifiedBy Organization Detail LastModifiedTime 11/29/19 23 11/28/2022 CBC/C OMPLE TE BLD COUNT W/DIF F white blood cells 7.8 x10'3 /uL 4.2-10 .8 Not Available [facility] (Lab) [address] [place], [address], 11/28/2022 20:06:57 11/29/19 23 11/28/2022 CBC/C OMPLE TE BLD COUNT W/DIF F red blood cells 4.87 x10'6 /uL 3.80-5 .20 Not Available [facility] (Lab) [address] [place], [address], 11/28/2022 20:06:57 11/29/19 23 11/28/2022 CBC/C OMPLE TE BLD COUNT W/DIF F hemoglobin 12.6 g/dL 12.0-1 5.6 Not Available [facility] (Lab) [address] [place], [address], 11/28/2022 20:06:57 11/29/19 23 11/28/2022 CBC/C OMPLE TE BLD COUNT W/DIF F hematocrit 40.2 % 35.7-4 5.7 Not Available [facility] (Lab) [address] [place], [address], 11/28/2022 20:06:57 11/29/19 23 11/28/2022 CBC/C OMPLE TE BLD COUNT W/DIF F mean red cell volume 82.5 fL 82.0-9 9.0 Not Available [facility] (Lab) [address] [place], [address], 11/28/2022 20:06:57 11/29/19 23 11/28/2022 CBC/C OMPLE TE BLD COUNT W/DIF F mean red cell hemoglobin 25.9 pg 27.0-3 3.0 low Not Available [facility] (Lab) [address] [place], [address], 11/28/2022 20:06:57 11/29/19 23 11/28/2022 CBC/C OMPLE TE BLD COUNT W/DIF F mean RBC HGB concentratio n 31.3 g/dL 31.0-3 6.0 Not Available [facility] (Lab) [address] [place], [address], 11/28/2022 20:06:57 11/29/19 23 11/28/2022 CBC/C OMPLE TE BLD COUNT W/DIF F red cell distribution width 14.1 % 11.8-1 5.5 Not Available [facility] (Lab) [address] [place], [address], 11/28/2022 20:06:57 11/29/19 23 11/28/2022 CBC/C OMPLE TE BLD COUNT W/DIF F platelets 291 x10'3 /uL 150-40 0 Not Available [facility] (Lab) [address] [place], [address], 11/28/2022 20:06:57 11/29/19 23 11/28/2022 CBC/C OMPLE TE BLD COUNT W/DIF F mean platelet volume 10.1 fL 9.0-12 .4 Not Available [facility] (Lab) [address] [place], [address], 11/28/2022 20:06:57 11/29/19 23 11/28/2022 CBC/C OMPLE TE BLD COUNT W/DIF F neutrophils 59.2 % 39.0-7 2.0 Not Available [facility] (Lab) [address] [place], [address], 11/28/2022 20:06:57 11/29/19 23 11/28/2022 CBC/C OMPLE TE BLD COUNT W/DIF F lymphocytes 30.8 % 16.0-4 7.0 Not Available [facility] (Lab) [address] [place], [address], 11/28/2022 20:06:57 11/29/19 23 11/28/2022 CBC/C OMPLE TE BLD COUNT W/DIF F monocytes 5.5 % 5.0-12 .0 Not Available [facility] (Lab) [address] [place], [address], 11/28/2022 20:06:57 11/29/19 23 11/28/2022 CBC/C OMPLE TE BLD COUNT W/DIF F eosinophils 4.1 % 1.0-7. 0 Not Available [facility] (Lab) [address] [place], [address], 11/28/2022 20:06:57 11/29/19 23 11/28/2022 CBC/C OMPLE TE BLD COUNT W/DIF F basophils 0.1 % 0.0-2. 0 Not Available [facility] (Lab) [address] [place], [address], 11/28/2022 20:06:57 11/29/19 23 11/28/2022 CBC/C OMPLE TE BLD COUNT W/DIF F immature granulocytes 0.3 % 0.00-0 .50 Not Available [facility] (Lab) [address] [facility] [place], [address], 11/28/2022 20:06:57 11/29/19 23 11/28/2022 CBC/C OMPLE TE BLD COUNT W/DIF F neutrophils, absolute count 4.58 x10'3 /uL 1.5-8. 0 Not Available [facility] (Lab) [address] [place], [address], 11/28/2022 20:06:57 11/29/19 23 11/28/2022 CBC/C OMPLE TE BLD COUNT W/DIF F lymphocytes, absolute count 2.39 x10'3 /uL 1.07-3 .43 Not Available [facility] (Lab) [address] [place], [address], 11/28/2022 20:06:57 11/29/19 23 11/28/2022 CBC/C OMPLE TE BLD COUNT W/DIF F monocytes, absolute count 0.43 x10'3 /uL 0.29-0 .99 Not Available [facility] (Lab) [address] [place], [address], 11/28/2022 20:06:57 11/29/19 23 11/28/2022 CBC/C OMPLE TE BLD COUNT W/DIF F eosinophils, absolute count 0.32 x10'3 /uL 0.02-0 .53 Not Available [facility] (Lab) [address] [place], [address], 11/28/2022 20:06:57 11/29/19 23 11/28/2022 CBC/C OMPLE TE BLD COUNT W/DIF F basophils, absolute count 0.01 x10'3 /uL 0.01-0 .08 Not Available [facility] (Lab) [address] [place], [address], 11/28/2022 20:06:57 11/29/19 23 11/28/2022 CBC/C OMPLE TE BLD COUNT W/DIF F immature granulocytes ,absolute 0.02 x10'3 /uL 0.00-0 .05 Not Available [facility] (Lab) [address] [place], [address], 11/28/2022 20:06:57 11/29/19 23 11/28/2022 CBC/C OMPLE TE BLD COUNT W/DIF F nucleated red blood cells 0.0 % -0 Not Available [facility] (Lab) [address] [place], [address], 11/28/2022 20:06:57 11/29/19 23 11/28/2022 CBC/C OMPLE TE BLD COUNT W/DIF F NRBC# 0.00 x10'3 /uL Not Available [facility] (Lab) [address] [place], [address], 11/28/2022 20:06:57 11/29/19 23 11/28/2022 URINA LYSIS COMPL ETE/I RIS W/RFX color YELLOW Not Available [facility] (Lab) [address] [place], [address], 11/28/2022 20:18:29 11/29/19 23 11/28/2022 URINA LYSIS COMPL ETE/I RIS W/RFX appear EXTRA TURBID abnormal Not Available [facility] (Lab) [address] [place], [address], 11/28/2022 20:18:29 11/29/19 23 11/28/2022 URINA LYSIS COMPL ETE/I RIS W/RFX specific gravity 1.027 1.001- 1.030 Not Available [facility] (Lab) [address] [place], [address], 11/28/2022 20:18:29 11/29/19 23 11/28/2022 URINA LYSIS COMPL ETE/I RIS W/RFX pH 6.0 pH_un its 5.0-9. 0 Not Available [facility] (Lab) [address] [place], [address], 11/28/2022 20:18:29 11/29/19 23 11/28/2022 URINA LYSIS COMPL ETE/I RIS W/RFX leukocytes NEGATI VE fabio/u L negati ve- Not Available [facility] (Lab) [address] [place], [address], 11/28/2022 20:18:29 11/29/19 23 11/28/2022 URINA LYSIS COMPL ETE/I RIS W/RFX nitrite NEGATI VE negati ve- Not Available [facility] (Lab) [address] [place], [address], 11/28/2022 20:18:29 11/29/19 23 11/28/2022 URINA LYSIS COMPL ETE/I RIS W/RFX protein 30 mg/dL negati ve- abnormal Not Available [facility] (Lab) [address] [place], [address], 11/28/2022 20:18:29 11/29/19 23 11/28/2022 URINA LYSIS COMPL ETE/I RIS W/RFX glucose NORMAL mg/dL normal - Not Available [facility] (Lab) [address] [place], [address], 11/28/2022 20:18:29 11/29/19 23 11/28/2022 URINA LYSIS COMPL ETE/I RIS W/RFX ketones NEGATI VE mg/dL negati ve- Not Available [facility] (Lab) [address] [place], [address], 11/28/2022 20:18:29 11/29/19 23 11/28/2022 URINA LYSIS COMPL ETE/I RIS W/RFX urobilinogen NORMAL mg/dL normal - Not Available [facility] (Lab) [address] [place], [address], 11/28/2022 20:18:29 11/29/19 23 11/28/2022 URINA LYSIS COMPL ETE/I RIS W/RFX bilirubin NEGATI VE mg/dL negati ve- Not Available [facility] (Lab) [address] [place], [address], 11/28/2022 20:18:29 11/29/19 23 11/28/2022 URINA LYSIS COMPL ETE/I RIS W/RFX blood 0.03 mg/dL negati ve- abnormal Not Available [facility] (Lab) [address] [place], [address], 11/28/2022 20:18:29 11/29/19 23 11/28/2022 URINA LYSIS COMPL ETE/I RIS W/RFX white blood cells 0-8 /i??h pfi?? 0-8 Not Available [facility] (Lab) [address] [place], [address], 11/28/2022 20:18:29 11/29/19 23 11/28/2022 URINA LYSIS COMPL ETE/I RIS W/RFX red blood cells 5-10 /i??h pfi?? 0-4 abnormal Not Available [facility] (Lab) [address] [place], [address], 11/28/2022 20:18:29 11/29/19 23 11/28/2022 URINA LYSIS COMPL ETE/I RIS W/RFX bacteria OCCASI ONAL abnormal Not Available [facility] (Lab) [address] [place], [address], 11/28/2022 20:18:29 11/29/19 23 11/28/2022 URINA LYSIS COMPL ETE/I RIS W/RFX mucous MANY /i??l pfi?? abnormal Not Available [facility] (Lab) [address] [place], [address], 11/28/2022 20:18:29 11/29/19 23 11/28/2022 URINA LYSIS COMPL ETE/I RIS W/RFX squamous epithelial PACKED FIELD /i??l pfi?? abnormal Not Available [facility] (Lab) [address] [place], [address], 11/28/2022 20:18:29 11/29/19 23 11/28/2022 URINA LYSIS COMPL ETE/I RIS W/RFX calcium oxalate crystal FEW /i??h pfi?? none seen- abnormal Not Available [facility] (Lab) [address] [place], [address], 11/28/2022 20:18:29 11/29/19 23 11/28/2022 IRON/ TIBC PANEL total iron binding capacity 273 mcg/d L 265-47 5 Not Available [facility] (Lab) [address] [place], [address], 11/28/2022 20:33:07 11/29/19 23 11/28/2022 IRON/ TIBC PANEL % transferrin saturation 16 % 20-55 low Not Available [facility] (Lab) [address] [place], [address], 11/28/2022 20:33:07 11/29/19 23 11/28/2022 IRON/ TIBC PANEL unsaturated iron bind capacity 230 mcg/d L 126-38 2 Not Available [facility] (Lab) [address] [place], [address], 11/28/2022 20:33:07 11/29/19 23 11/28/2022 IRON/ TIBC PANEL iron 43 mcg/d L 42-175 Not Available [facility] (Lab) [address] [place], [address], 11/28/2022 20:33:07 11/29/19 23 11/28/2022 LIPID PANEL cholesterol 206 mg/dL 140-19 9 high NIH KEMAR NSUS RECOM MENDA TION FOR DOINNE STERO L: ADULT CHILD LOW RISK: <200 <170 BORDE RLINE : <200- 239 ----- HIGH RISK: >240 >200 Not Available [facility] (Lab) [address] [place], [address], 11/28/2022 20:31:54 11/29/19 23 11/28/2022 LIPID PANEL triglyceride s 65 mg/dL 0-150 NIH KEMAR NSUS REPOR T RECOM MENDA TION FOR TRIGL YCERI HÉCTOR: ADULT CHILD LOW RISK: <150 ----- BODER LINE: 150-1 99 ----- HIGH RISK: >200 ----- Not Available [facility] (Lab) [address] [place], [address], 11/28/2022 20:31:54 11/29/19 23 11/28/2022 LIPID PANEL HDL cholesterol 57 mg/dL 40- Not Available [facility] (Lab) [address] [place], [address], 11/28/2022 20:31:54 11/29/19 23 11/28/2022 LIPID PANEL LDL cholesterol, calculated 136 mg/dL 0-130 high NIH KEMAR NSUS REPOR T RECOM MENDA TIONS FOR LDL: ADULT CHILD LOW RISK <130 <110 (OPTI MAL LDL) <100 ----- BORDE RLINE : 130-1 59 ----- HIGH RISK: >160 >130 A TRIGL YCERI DE RESUL T >400 INVAL IDATE S THE CALCU LATIO N FOR LDL FRACT IONAT ION - THE LDL RESUL T WILL NOT BE REPOR STEVEN. Not Available [facility] (Lab) [address] [place], [address], 11/28/2022 20:31:54 11/29/19 23 11/28/2022 HEPAT IC/LI CASSI PANEL alkaline phosphatase 74 U/L 38-126 Not Available [facility] (Lab) [address] [place], [address], 11/28/2022 20:31:59 11/29/19 23 11/28/2022 HEPAT IC/LI CASSI PANEL alanine aminotransfe rase 34 U/L 0-35 Not Available [facility] (Lab) [address] [place], [address], 11/28/2022 20:31:59 11/29/19 23 11/28/2022 HEPAT IC/LI CASSI PANEL aspartate aminotransfe rase 30 U/L 15-37 Not Available [facility] (Lab) [address] [place], [address], 11/28/2022 20:31:59 11/29/19 23 11/28/2022 HEPAT IC/LI CASSI PANEL bilirubin, total 0.30 mg/dL 0.20-1 .30 Not Available [facility] (Lab) [address] [place], [address], 11/28/2022 20:31:59 11/29/19 23 11/28/2022 HEPAT IC/LI CASSI PANEL bilirubin, conjugated (direct) 0.00 mg/dL 0.00-0 .30 Not Available [facility] (Lab) [address] [place], [address], 11/28/2022 20:31:59 11/29/19 23 11/28/2022 HEPAT IC/LI CASSI PANEL biliurubin,u ncong. (indirect) 0.30 mg/dL 0.00-1 .1 Not Available [facility] (Lab) [address] [place], [address], 11/28/2022 20:31:59 11/29/19 23 11/28/2022 HEPAT IC/LI CASSI PANEL total protein 6.7 g/dL 6.3-8. 2 Not Available [facility] (Lab) [address] [place], [address], 11/28/2022 20:31:59 11/29/19 23 11/28/2022 HEPAT IC/LI CASSI PANEL albumin 3.7 g/dL 3.4-5. 0 Not Available [facility] (Lab) [address] [place], [address], 11/28/2022 20:31:59 11/29/19 23 11/28/2022 HEPAT IC/LI CASSI PANEL globulin 3.0 g/dL 2.6-4. 2 Not Available [facility] (Lab) [address] [place], [address], 11/28/2022 20:31:59 11/29/19 23 11/28/2022 HEPAT IC/LI CASSI PANEL A/G ratio 1.2 ratio 1.0-2. 0 Not Available [facility] (Lab) [address] [place], [address], 11/28/2022 20:31:59 11/29/19 23 11/28/2022 BASIC METAB OLIC PANEL sodium 139 mmol/ L 137-14 5 Not Available [facility] (Lab) [address] [place], [address], 11/28/2022 20:32:09 11/29/19 23 11/28/2022 BASIC METAB OLIC PANEL potassium 3.7 mmol/ L 3.5-5. 1 Not Available [facility] (Lab) [address] [place], [address], 11/28/2022 20:32:09 11/29/19 23 11/28/2022 BASIC METAB OLIC PANEL chloride 109 mmol/ L 98-107 high Not Available [facility] (Lab) [address] [place], [address], 11/28/2022 20:32:09 11/29/19 23 11/28/2022 BASIC METAB OLIC PANEL carbon dioxide 22 mmol/ L 22-30 Not Available [facility] (Lab) [address] [place], [address], 11/28/2022 20:32:09 11/29/19 23 11/28/2022 BASIC METAB OLIC PANEL anion gap 11.7 mmol/ L 14-22 low Not Available [facility] (Lab) [address] [place], [address], 11/28/2022 20:32:09 11/29/19 23 11/28/2022 BASIC METAB OLIC PANEL glucose 115 mg/dL 70-99 high Not Available [facility] (Lab) [address] [place], [address], 11/28/2022 20:32:09 11/29/19 23 11/28/2022 BASIC METAB OLIC PANEL BUN 8 mg/dL 8-19 Not Available [facility] (Lab) [address] [place], [address], 11/28/2022 20:32:09 11/29/19 23 11/28/2022 BASIC METAB OLIC PANEL creatinine 0.65 mg/dL 0.66-1 .25 low Not Available [facility] (Lab) [address] [place], [address], 11/28/2022 20:32:09 11/29/19 23 11/28/2022 BASIC METAB OLIC PANEL GFR >60 Refer ence Range : [place] GFR Healt hy Adult : >60 mL/mi n/1.7 3 m2 Chron ic Kidne y Disea se: 15-60 mL/mi n/1.7 3 m2 Kidne y Failu re: <15/m L/min /1.73 m2 www.n iddk. nih.g ov The MDRD study equat ion has not been valid ated in child sj <18 years of age; pregn ant women ; the elder ly >85 years of age; or in some racia l or ethni c subgr oups, such as Hispa nics. Outsi de the valid ated kathleen eters , estim ated GFR is less accur ate, requi ring clini brian judgm ent on a case- by-ca se basis . Clini brian inter preta tion for other races and ages must be made by the clini estephania. The MDRD study equat ion has not been valid ated for the evalu ation of serum creat inine relat ed to nutri cherelle l statu s or medic ation usage . For perso ns <18 years of age, a pedia tric GFR calcu lator is avail able on the [facility] websi te: https ://sahara gannon.grzegorz mayer.o rg/pr ofess ional s/kdo qi/gf r_cal culat or Not Available [facility] (Lab) [address] [place], [address], 11/28/2022 20:32:09 11/29/19 23 11/28/2022 BASIC METAB OLIC PANEL calcium 9.0 mg/dL 8.4-10 .2 Not Available [facility] (Lab) [address] [place], [address], 11/28/2022 20:32:09 11/29/19 23 11/28/2022 HEMOG LOBIN A1C HA1C 5.6 % 4.0-6. 0 Diabe carmelo Scree sima Crite balbir: <5.7% Consi stent with absen ce of diabe carmelo 5.7-6 .4% Consi stent with incre ased risk for diabe carmelo (pred iabet es) >OR=6 .5% Consi stent with diabe carmelo REFER ENCE: Diabe carmelo Care 2016, 39(Steele ppl.1 ):s13 -s22 Not Available [facility] (Lab) [address] [place], [address], 11/28/2022 20:46:02 11/29/19 23 11/28/2022 TSH thyroid-stim ulating hormone 0.712 uIU/m L 0.465- 4.680 Not Available [facility] (Lab) [address] [place], [address], 11/28/2022 20:59:48 11/29/1911/28/2022 SANDRA TIN ferritin 68 NG/mL 6.24-1 37 Not Available [facility] (Lab) [address] [place], [address], 11/28/2022 21:00:02 11/29/1911/29/2022 VITAM IN D 25-HY DROXY vd25oh 22.4 NG/mL 30-100 low Vitam in D Statu s: Defic ient: <20 ng/mL Insuf ficie nt: 20-29 ng/mL Suffi cient : 30-10 0 ng/mL Not Available [facility] (Lab) [address] [place], [address], 11/30/2022 00:44:13 11/29/1911/30/2022 VITAM IN B12 (ARMEN LUCIA ) vb12 505 pg/mL 239-93 1 Not Available [facility] (Lab) [address] [place], [address], 11/30/2022 01:13:02 11/09/19 23 11/08/2022 XR, chest No observ ation record ed. [email or web address] [place] [id number] [facility] [address] [place] [address], [id number], 11/15/2022 10:17:01 11/10/1911/08/2022 CT, angio gram, chest , w/ contr ast No observ ation record ed. [email or web address] [facility] [address] [facility] [address], [address], 08/12/2023 17:01:02 07/26/19 24 07/26/2023 CT, abdom en + pelvi s, w/o contr ast No observ ation record ed. [email or web address] [address], [place], [address], 08/25/2023 10:04:30 10/05/19 24 10/05/2023 US, echoc ardio gram No observ ation record ed. [place] [id number] [facility] [address], [place], [address], 10/19/2023 15:59:16 10/05/19 24 10/05/2023 exerc ise stres s test No observ ation record ed. [address], [place], [address], 10/19/2023 15:59:51 10/16/19 24 XR, knee No observ ation record ed. [email or web address] Not Available 2023 16:35:34 12/21/19 24 12/21/2023 MRI, knee, w/o contr ast [facility] [place] [id number] Patien t Name: LUCIE LAZAR Access ion #: [id number] Sex: F : 1984 5 Dictat ed By: Carlos Alberto Wagner ms Attend ing Physic britney: AMY SPENCER [facility] Physic britney: AMY SPENCER Exam Date: 2023 13:22 PM Exam Name: MRI KNEE LT WO Admitt ing Diagno sis(es ): CLINIC AL INDICA TION: 38 years old, Female ; pain in left knee joint. TECHNI QUE: Multip lanar, multis equenc e MRI of the left knee was perfor med withou t contra st. Contra st: None. COMPAR KATHY: Radiog raphs of the left knee dated 2023. FINDIN GS: Joint space and synovi um: There is a small sargent' s cyst. Small knee joint effusi on. Bones and articu lar cartil age: There is no eviden ce of acute fractu re. Mild bone marrow edema in the snout puller olater al tibia and the medial tibial platea u. The alignm ent is normal . The articu lar cartil age is preser bertin. Menisc i: There is a comple x tear in the snout puller ior horn body of the medial menisc us. The latera l menisc us is intact . Tendon s and ligame nts: The tendon s in the snout puller ior knee are intact . The extens or mechan ism is intact . The anteri or crucia te ligame nt is torn. The snout puller ior crucia te ligame nt is intact . The medial collat eral ligame nt and the latera l collat eral ligame nt stabil izing comple x are intact . Muscle s: Region al muscle s are preser bertin in bulk and signal charac terist ics. Other: None. IMPRES SIMI: Page 1 [facility] [place] [address] [place] [address] Patien t Name: LUCIE LAZAR Access ion #: [id number] Sex: F : 1984 5 Dictat ed By: Carlos Alberto Wagner ms Attend ing Physic britney: TJ REYES [facility] Physic britney: AMY SPENCER Exam Date: 2023 13:22 PM Exam Name: MRI KNEE LT WO Admitt ing Diagno sis(es ): 1. Full-t hickne ss ACL tear. 2. Comple x tear of the snout puller ior horn body juncti on of the medial menisc us. 3. Bone marrow edema in the snout puller ior medial and snout puller olater al tibial platea u. Electr onical ly Signed by: Carlos Alberto Wagner ms at 2023 14:27: 22 PM Page 2 [email or web address] [facility] ([facility]) [address] [place], [address], 12/24/2023 10:43:10 12/21/19 24 12/21/2023 MRI, knee, w/o contr ast No observ ation record ed. [email or web address] [facility] [address] [place], [address], 12/31/2023 14:30:03 04/19/19 25 04/19/2024 CT, abdom en + pelvi s, w/o contr ast No observ ation record ed. [facility] [address] [place], [address], 04/24/2024 08:34:56 04/22/19 25 04/22/2024 CT, abdom en + pelvi s, w/ contr ast No observ ation record ed. [facility] [address] [place], [address], 04/24/2024 08:32:21 04/29/19 25 04/28/2024 XR, chest , 1 view No observ ation record ed. [facility] [address] [place], [address], 05/01/2024 08:40:19 04/29/19 25 04/29/2024 CT, brain , w/o contr ast No observ ation record ed. [facility] [address] [place], [address], 05/01/2024 08:39:56 04/29/19 25 04/29/2024 CT, angio gram, chest , w/ contr ast No observ ation record ed. [facility] [address] [place], [address], 05/01/2024 08:39:30 Result Notes None recorded. Problems Name Problem SNOMED Code Status Onset Date Resolution Date Notes Provider Name and Address Organization Details Recorded Time Acne 79513098 Active Not Available [facility] 3 01:48:05 Folliculit is 41839889 Active Not Available [facility] 3 01:48:05 Asthma 651784941 Active 2020 Not Available [facility] 3 01:48:05 Microscopi c hematuria 860184006 Active Not Available [facility] 3 01:48:05 Infection of skin and/or subcutaneo us tissue 30994882 Active Not Available [facility] 3 01:48:05 Abnormal vaginal bleeding 523694249 Active Not Available [facility] 3 01:48:05 Menometror rhagia 010478122 Active Not Available [facility] 3 01:48:05 Blood in urine 94902564 Active Not Available [facility] 3 01:48:05 Depressive disorder 94755460 Active Not Available [facility] 3 01:48:05 History of substance abuse 214827387 Active Not Available [facility] 3 01:48:05 Angioedema 64385785 Active Not Available [facility] 3 01:48:05 Bacterial vaginosis 283514236 Active Not Available [facility] 3 01:48:05 Atypical squamous cells of undetermin ed significan ce on cervical Papanicola ou smear 306368858 Active Not Available [facility] 3 01:48:05 Pain of right knee joint 3628913069965 00 Active 2021 Not Available [facility] 3 01:48:05 Dysuria 15728739 Active Not Available [facility] 3 01:48:05 Hyperlipid emia 49765931 Active Not Available [facility] 3 01:48:05 Substance abuse 49285826 Active Not Available [facility] 3 01:48:05 Cyst of ovary 96577003 Active Not Available [facility] 3 01:48:06 Irregular periods 71829810 Active Not Available [facility] 3 01:48:06 Tobacco dependence syndrome 17453497 Active Not Available [facility] 3 01:48:06 Pain of left knee joint 8483952294723 07 Active 2022 Marion Hartman CNA null, [place] [facility] 3 11:56:09 Sprain of left knee 4810275989690 9108 Active 2022 Not Available [facility] 3 01:48:05 Vitamin D deficiency 49241340 Active 2022 Kayley Huang MD [address], [place], [address] , [place] [facility] 3 14:45:33 Hyperglyce thu 50895168 Active 2022 Kayley Huang MD [address], [address], [place], [address] , [place] [facility] 3 14:46:13 Fatigue 03886884 Active 2022 Kayley Huang MD [address], [address], [place], [address] , [place] [facility] 3 14:46:36 Urinary symptoms 794623474 Active 2022 YANIRA Hopkins [address], [address], [place], [address] , [place] [facility] 3 13:47:59 Cough 51895695 Active 2022 Kayley Huang MD [address], [place], [address] , [place] [facility] 3 10:44:13 Allergic reaction 287117339 Active 2022 Kayley Huang MD [address], [place], [address] , [place] [facility] 3 10:46:37 Derangemen t of left knee 1489622136355 9108 Active 2023 ERIC Melgar [address], [place], [address] , [place] [facility] 4 10:39:31 Nicotine dependence 42188438 Active 2023 Afsaneh [place], [place] [facility] 4 15:12:18 Complete tear, knee, anterior cruciate ligament 514612704 Active 2023 Abner Wright MD [address], [place], [address] , [place] 16:46:47 Problem Notes None recorded. Procedures Surgical History Date Name Laterality Status Provider Name and Address Organization Details Recorded Time tonsilectomy/a denoids completed Not Available [facility] 06/07/2022 08:44:43 section completed Marion Hartman CNA Proenza Schouer 12/13/2023 10:18:42 Imaging Results Imaging Date Name Status LastModified by Organization Details LastModified Time 11/08/2022 XR, chest completed [address] [place] [address], [address], 11/15/2022 10:17:01 11/08/2022 CT, angiogram, chest, w/ contrast completed [address], [address], 08/12/2023 17:01:02 07/26/2023 CT, abdomen + pelvis, w/o contrast completed [address] [place] [address], [address], 08/25/2023 10:04:30 10/05/2023 US, echocardiogram completed [place] [address], [place], [address], 10/19/2023 15:59:16 10/05/2023 exercise stress test completed [address], [address], 10/19/2023 15:59:51 10/16/2023 XR, knee completed [email or web address] Information no t available 10/16/2023 16:35:34 12/21/2023 MRI, knee, w/o contrast completed [email or web address] [facility] [address] [place], [address], 12/24/2023 10:43:10 12/21/2023 MRI, knee, w/o contrast completed [facility] [address] [place], [address], 12/31/2023 14:30:03 04/19/2024 CT, abdomen + pelvis, w/o contrast completed [facility] [address] [place], [address], 04/24/2024 08:34:56 04/22/2024 CT, abdomen + pelvis, w/ contrast completed [facility] [address] [place], [address], 04/24/2024 08:32:21 04/28/2024 XR, chest, 1 view completed [facility] [address] [place], [address], 05/01/2024 08:40:19 04/29/2024 CT, brain, w/o contrast completed [facility] [address] [place], [address], 05/01/2024 08:39:56 04/29/2024 CT, angiogram, chest, w/ contrast completed [facility] [address] [place], [address], 05/01/2024 08:39:30 Procedure Notes None recorded. Medical Equipment None Reported. Allergies Allergen ID Allergen Name Allergen Category Reaction Reaction Severity Criticality Documentation Date Start Date Code Code System Note Provider Name and Address Organization Details Recorded Time 84317 Substance with sulfonami de structure and antibacte rial mechanism of action (substanc e) medicatio n hives rash respirato ry distress Not available Not available severe Not available 06/07/2022 34823 8003 SNOMED aller gy previ ously marke d as life -thre ateni ng Not Available [facility] 3 08:53:56 99490 peanut allergeni c extract food,medi cation angioedem a severe Not available 06/07/2022 69440 8 RxNorm Pt. has epi pen Not Available [facility] 3 08:53:56 72076 aspirin medicatio n itching moderate Not available 06/07/2022 1191 RxNorm Not Available [facility] 3 08:53:57 54479 amoxicill in medicatio n hives moderate Not available 06/07/2022 723 RxNorm throa t close s Marion HidalgoDIEGO [place], [facility] 4 10:12:24 89847 Keflex medicatio n Not available Not available Not available 11/02/202236077 7 RxNorm Marium Quintero cristofer, [facility] 3 12:04:24 Medications Name Sig Start Date Stop Date Status Note LastModified by Organization Details LastModified Time cyclobenzap rine 10 mg tablet TAKE 1 TABLET BY MOUTH EVERY 8 HOURS 11/02 completed Not Available Not Available Not Available methocarbam ol 500 mg tablet 09/27 completed Not Available Not Available Not Available oxcarbazepi ne 150 mg tablet TK 1 T PO BID 09/27 completed Not Available Not Available Not Available prednisone 10 mg tablet PLEASE SEE ATTACHED FOR DETAILED DIRECTION S 12/12 completed Not Available Not Available Not Available doxycycline hyclate 100 mg capsule TAKE 1 CAPSULE BY MOUTH TWICE A DAY 12/12 completed Not Available Not Available Not Available naproxen 375 mg tablet TAKE 1 ORAL TABLET 2 TIMES A DAY NEEDED PAIN/INFL AMMATION 11/02 completed Not Available Not Available Not Available clindamycin HCl 300 mg capsule TAKE 1 CAPSULE BY MOUTH EVERY 6 HOURS FOR 10 DAYS 11/02 completed Not Available Not Available Not Available trazodone 50 mg tablet TK 1 T PO QHS PRN 09/27 completed Not Available Not Available Not Available cetirizine 10 mg tablet TAKE 1 TABLET BY MOUTH EVERY DAY 12/12 completed Not Available Not Available Not Available azithromyci n 250 mg tablet TAKE 2 TABLETS BY MOUTH TODAY, THEN TAKE 1 TABLET DAILY FOR 4 DAYS 11/02 completed Not Available Not Available Not Available ibuprofen 800 mg tablet TAKE 1 TABLET PO EVERY 8 HOURS PRN 11/02 completed Not Available Not Available Not Available fluconazole 150 mg tablet TAKE 1 TABLET BY MOUTH 09/27 completed Not Available Not Available Not Available ranitidine 300 mg tablet Take 1 tablet(s) every day by oral route in the morning. active Not Available Not Available No t Available hydrocodone 5 mg-acetamin ophen 325 mg tablet TAKE 1-2 TABLETS BY MOUTH EVERY 4 HOURS NEEDED FOR PAIN. MAXIMUM DAILY DOSE IS 8 TABLETS 11/02 completed Not Available Not Available Not Available ondansetron HCl 8 mg tablet Take 1 tablet every 8 hours by oral route as needed. active Not Available Not Available No t Available fluconazole 200 mg tablet active Not Available Not Available Not Available phenazopyri dine 200 mg tablet 09/27 completed Not Available Not Available Not Available sumatriptan 25 mg tablet TK 1 T PO PRF LOBO MAY REPEAT Q 2 H FOR A MAX OF 3 TS PER DAY active Not Available Not Available No t Available ondansetron HCl 4 mg tablet TAKE 1 TABLET BY MOUTH EVERY 8 HOURS 12/12 completed Not Available Not Available Not Available prednisone 20 mg tablet TAKE 2 TABLETS BY MOUTH EVERY DAY FOR 5 DAYS 12/12 completed Not Available Not Available Not Available metronidazo le 250 mg tablet 09/27 completed Not Available Not Available Not Available triamcinolo ne acetonide 0.5 % topical ointment APPLY TO AFFECTED AREA TWICE A DAY 11/02 completed Not Available Not Available Not Available metronidazo le 500 mg tablet TAKE 1 TABLET (500 MG) BY MOUTH EVERY 12 HOUR FOR 7 DAYS 12/12 completed Not Available Not Available Not Available acetaminoph en 300 mg-codeine 30 mg tablet 09/27 completed Not Available Not Available Not Available fexofenadin e 180 mg tablet 09/27 completed Not Available Not Available Not Available ciprofloxac in 250 mg tablet Take 1 tablet every 12 hours by oral route for 2 days. active Not Available Not Available No t Available ciprofloxac in 500 mg tablet Take 1 tablet every 12 hours by oral route. active Not Available Not Available No t Available sulfamethox azole 800 mg-trimetho prim 160 mg tablet TAKE 1 ORAL TABLET 2 TIMES A DAY X 7 DAYS 11/02 completed Not Available Not Available Not Available Tegretol XR 100 mg tablet,exte nded release active Not Available Not Available Not Available doxycycline monohydrate 100 mg tablet 09/27 completed Not Available Not Available Not Available tramadol 50 mg tablet TK 1 T PO Q 4-6 H 09/27 completed Not Available Not Available Not Available acetaminoph en 500 mg tablet TAKE 2 TABLETS (1000 MG) BY MOUTH EVERY 8 TO 10 HOURS NEEDED FOR FEVER OR PAIN active Not Available Not Available No t Available lamotrigine 25 mg tablet active Not Available Not Available Not Available prednisone 10 mg tablets in a dose pack Take 1 tab by mouth, 3 times a day for 3 daysTake 1 tab by mouth 2 times a day for 2 daysTake 1 tab by mouth once a day for 1 day 12/12 completed Not Available Not Available Not Available meloxicam 7.5 mg tablet TAKE 2 TABLETS BY MOUTH ONCE DAILY FOR 7 DAYS 12/12 completed Not Available Not Available Not Available verapamil 120 mg tablet 2013 active Not Available Not Available Not Avai lable oxycodone-a cetaminophe n 5 mg-325 mg tablet TAKE 1 TABLET PO EVERY 6 HOURS PRN active Not Available Not Available No t Available famotidine 20 mg tablet 09/27 completed Not Available Not Available Not Available betamethaso ne valerate 0.1 % topical cream 09/27 completed Not Available Not Available Not Available Kenalog 10 mg/mL suspension for injection Take 20 mg by injection route. 12/[address] [facility]: [phone] Not Available Not Available Not Available phenazopyri dine 100 mg tablet 09/27 completed Not Available Not Available Not Available baclofen 10 mg tablet Take 1 tablet 3 times a day by oral route for 10 days. active Not Available Not Available No t Available doxycycline monohydrate 100 mg capsule po BID active Not Available Not Available Not Available pantoprazol e 40 mg tablet,bari yed release TAKE 1 TABLET BY MOUTH EVERYDAY AT BEDTIME FOR 4 WEEKS 12/12 completed Not Available Not Available Not Available lidocaine 5 % topical patch APPLY 1 PATCH TO MOST PAINFUL AREA FOR UP TO 12 HOURS DAILY 11/02 completed Not Available Not Available Not Available orphenadrin e citrate ER 100 mg tablet,exte nded release active Not Available Not Available Not Available diclofenac potassium 50 mg tablet TAKE 1 TABLET BY MOUTH THREE TIMES A DAY NEEDED FOR PAIN 12/12 completed Not Available Not Available Not Available triamcinolo ne acetonide 0.025 % topical ointment APPLY THIN TOPICAL LAYER TO AFFECTED AREA 3 TIMES A DAY FOR UP TO 7 DAYS. active Not Available Not Available No t Available epinephrine 0.3 mg/0.3 mL injection, auto-inject or INJECT THE CONTENTS OF 1 PEN INTO THE MUSCLE ONCE NEEDED FOR ALLERGIC REACTION active Not Available Not Available No t Available ibuprofen 600 mg tablet TAKE 1 TABLET (600 MG) BY MOUTH 3 TIMES DAILY NEEDED FOR FEVER OR PAIN active Not Available Not Available No t Available levofloxaci n 500 mg tablet TAKE 1 TABLET BY MOUTH EVERY DAY 01/05 completed Not Available Not Available Not Available levofloxaci n 750 mg tablet TAKE 1 TABLET (750 MG) BY MOUTH DAILY FOR 7 DAYS active Not Available Not Available No t Available methylpredn isolone 4 mg tablets in a dose pack TAKE PER PACKAGE INSERT 12/12 completed Not Available Not Available Not Available albuterol sulfate HFA 90 mcg/actuati on aerosol inhaler INHALE 2 PUFFS BY MOUTH EVERY 4 HOURS NEEDED FOR COUGH OR SHORTNESS OF BREATH active Not Available Not Available No t Available ondansetron 4 mg disintegrat ing tablet DISSOLVE 1 TABLET ON THE TONGUE EVERY 8 HOURS NEEDED FOR NAUSEA AND VOMITING active Not Available Not Available No t Available neomycin 3.5 mg-polymyxi n 10,000 unit-hydroc ort 10 mg/mL eye drop,susp INSTILL 3 DROPS IN LEFT EAR Q 8 H FOR 7 DAYS active Not Available Not Available No t Available fluticasone propionate 50 mcg/actuati on nasal spray,suspe nsion 09/27 completed Not Available Not Available Not Available doxycycline hyclate 100 mg tablet TAKE 1 TABLET BY MOUTH TWICE A DAY 11/28 completed Not Available Not Available Not Available gentamicin 0.1 % topical ointment APPLY A SMALL AMOUNT TO THE AFFECTED AREA BY TOPICAL ROUTE 3 TIMES PER DAY active Not Available Not Available No t Available naproxen 500 mg tablet TAKE 1 TABLET BY MOUTH TWICE A DAY 11/02 completed Not Available Not Available Not Available Vistaril 50 mg capsule Take 1 capsule every day by oral route at bedtime for 15 days. 10/17 completed Not Available Not Available Not Available naproxen 375 mg tablet,bari yed release TAKE 1 TABLET BY MOUTH TWICE DAILY NEEDED WITH FOOD active Not Available Not Available No t Available hydroxyzine pamoate 25 mg capsule TK 1 C PO TID PRN 09/27 completed Not Available Not Available Not Available neomycin-po lymyxin-hyd rocort 3.5 mg-10,000 unit/mL-1 % ear drops,susp 09/27 completed Not Available Not Available Not Available Depo-Stone Crusher Operator a 150 mg/mL intramuscul ar syringe Inject 1 mL every 3 months by intramusc ular route. 02/04 completed Not Available Not Available Not Available cyclobenzap rine 5 mg tablet TK 1 T PO TID active Not Available Not Available No t Available Marcaine (PF) 0.5 % (5 mg/mL) injection solution Take 20 mg by injection route. 12/12 completed Not Available Not Available Not Available nitrofurant oin monohydrate /macrocryst als 100 mg capsule TAKE 1 CAPSULE BY MOUTH EVERY 12 HOURS FOR 10 DAYS 12/12 completed Not Available Not Available Not Available Allergy Relief (diphenhydr amine) 25 mg tablet 09/27 completed Not Available Not Available Not Available Boostrix Tdap 2.5 Lf unit-8 mcg-5 Lf/0.5 mL intramuscul ar syringe 12/07 completed Not Available Not Available Not Available Benadryl 12/12 completed Not Available Not Available Not Available Zyrtec 12/12 completed Not Available Not Available Not Available Latuda 20 mg tablet active Not Available Not Available No t Available naloxone 4 mg/actuatio n nasal spray CALL 911. ADMINISTE R A SINGLE SPRAY INTRANASA LLY INTO ONE NOSTRIL UPON SIGNS OF OPIOID OVERDOSE. MAY REPEAT AFTER 3 MINUTES IF NO RESPONSE. 12/12 completed Not Available Not Available Not Available Flucelvax Quad 6308-1347 (PF) 60 mcg (15 mcg x 4)/0.5 mL IM syringe 12/07 completed Not Available Not Available Not Available Vitals Date Recorded Body height Body mass index (BMI) Body weight Body temperature Heart rate Oxygen saturation Oxygen saturation in Arterial blood by Pulse oximetry Systolic blood pressure Diastolic blood pressure Provider Name and Address Organization Details Last Updated DateTime 3 157.48 cm 40.6 kg/m2 372445. 51 g 97.2 [degF] 111 /min 99 % 99 % 136 mm[Hg] 88 mm[Hg] Ella Blevins RN [facility] [employer] [facility] 3 14:37:19 Date Recorded Body height Body mass index (BMI) Body weight Body temperature Oxygen saturation Oxygen saturation in Arterial blood by Pulse oximetry Heart rate Systolic blood pressure Diastolic blood pressure Provider Name and Address Organization Details Last Updated DateTime 157.48 cm 40.6 kg/m2 422456. 51 g 97.9 [degF] 99 % 99 % 100 /min 128 mm[Hg] 90 mm[Hg] Ella Blveins RN [facility] [employer] [facility] 3 10:38:44 Date Recorded Body height Body mass index (BMI) Body weight Provider Name and Address Organization Details Last Updated DateTime 10/26/2023 160.02 cm 39 kg/m2 05753.32 g Marion Hartman CNA [facility] [email or web address] 10/26/2023 15:29:08 Date Recorded Body height Body mass index (BMI) Body weight Provider Name and Address Organization Details Last Updated DateTime 12/13/2023 160.02 cm 38.6 kg/m2 79594.14 g Marion Hartman, STNA [facility] [email or web address] 12/13/2023 10:11:32 Date Recorded Body height Body mass index (BMI) Body weight Provider Name and Address Organization Details Last Updated DateTime 01/02/2024 160.02 cm 39 kg/m2 87291.32 g Marion Hartman, STNA [place] [employer] [facility] [email or web address] 01/02/2024 14:36:12 Social History Question Answer Notes LastModified by Organizat ion Details LastModified Time Tobacco Smoking Status Former Smoker KURT MinorA null, [facility] [email or web address] 12/13/2023 10:18:22 Do You Have An Advance Directive? No [id number] Information not available 06/07/2022 What Is Your Level Of Alcohol Consumption? Occasional [id number] Information not available 06/07/2022 What Is Your Level Of Caffeine Consumption? Moderate [id number] Information not available 06/07/2022 In The 14 Days Before Symptom Onset, Have You Had Close Contact With A Laboratory-confir med COVID-19 While That Case Was Ill? No [email or web address] Information not available 01/10/2023 In The 14 Days Before Symptom Onset, Have You Had Close Contact With A Person Who Is Under Investigation For COVID-19 While That Person Was Ill? No [email or web address] Information not available 01/10/2023 What Was The Date Of Your Most Recent Tobacco Screening? 11/28/2022 Information not available 01/10/2023 Have You Ever Been Counseled For Unhealthy Alcohol Use? No [email or web address] Information not available 01/10/2023 How Much Tobacco Do You Smoke? 0.5 PPD [email or web address] Information not available 11/02/2022 Do You Use Any Illicit Or Recreational Drugs? No [email or web address] Information not available 01/10/2023 Do You Use Sunscreen Routinely? No [email or web address] Information not available 01/10/2023 How Many Years Have You Smoked Tobacco? 35 [email or web address] Information not available 12/13/2023 Have You Recently Traveled Abroad? No [email or web address] Information not available 01/10/2023 Sex: Unknown Functional Status None recorded. Mental Status None recorded. Family History Relationship Description Onset Age of this Age Resolved Age Notes LastModified by Organization Details LastModified Time Paternal Grandmother Type 2 diabetes mellitus [email or web address] Not available 2023 15:25:19 Father Myocardial infarction [id number] Not available 06/07/2022 08:44:45 Father Heart disease [id number] Not available 06/07/2022 08:44:45 Maternal Grandfather Alzheimer's disease [email or web address] Not available 2023 15:25:19 Maternal Grandfather Type 2 diabetes mellitus [email or web address] Not available 2023 10:17:19 Mother Heart disease [email or web address] Not available 11/02 12:07:09 Mother Family history of stroke [email or web address] Not available 2023 15:25:19 Mother Hypertensive disorder [email or web address] Not available 2023 10:16:38 Mother Kidney disease [email or web address] Not available 2023 10:17:51 Daughter Family history of malignant neoplasm [email or web address] Not available 2023 15:25:19 Brother Blood coagulation disorder [email or web address] Not available 2023 10:16:55 Paternal Grandfather Type 2 diabetes mellitus [email or web address] Not available 2023 10:17:16 Maternal Grandmother Type 2 diabetes mellitus [email or web address] Not available 2023 10:17:24 Notes:cancer-daughter Medical History Condition Response HEART DISEASE/HEART PROBLEMS Y ARTHRITIS Y ULCERS Y KIDNEY STONES Y HEART ARRHYTHMIA Y ANEMIA/BLOOD DISORDER Y Gynecological HistoryNo gynecological history recorded. Obstetrics History GPAL:G 0 P 0 0 0 0 Immunizations Vaccine Type Date Status Note Provider Nam e and Address Organization Details Recorded Time Influenza, split virus, trivalent, PF 4 completed Not Available [facility] 11/14/2022 08:03:55 COVID-19, mRNA, LNP-S, PF, 30 mcg/0.3 mL dose 1 completed Not Available [facility] 11/14/2022 08:03:55 Influenza, split virus, trivalent, preservative 4 completed Not Available [facility] 11/14/2022 08:03:55 Influenza, split virus, quadrivalent, PF 5 completed Not Available [facility] 11/14/2022 08:03:55 Past Encounters Encounter ID Performer Location Encounter Start Date Encounter Closed Date Diagnosis/Indication Diagnosis SNOMED-CT Code Diagnosis ICD10 Code Diagnosis Note [id number] [facility] [address] [place] [address] 09/27/2020 00:00:00 09/27/2020 16:05:42 [id number] [facility] [address] [place] [address] 11/01/2020 00:00:00 11/01/2020 14:29:47 [id number] [facility] [address] [place] [address] 12/07/2021 00:00:00 12/07/2021 17:47:28 [id number] [facility] [address] [address] 01/05/2022 00:00:00 01/05/2022 16:30:19 [id number] [facility] [address] [facility] [address] [place] [address] 05/12/2022 00:00:00 05/12/2022 09:42:33 [id number] ERIC Melgar [facility] [address] [place] [address] 11/02/2022 11:44:39 11/02/2022 12:27:47 Pain of left knee joint [id number] 14388 M25.562 Sprain of left knee 1176 053161 4323636 S83.92XA [id number] Kayley Huang MD [facility] Primary Care [facility] [address] [facility] [address] [place] [address] 11/28/2022 14:33:37 11/28/2022 15:06:46 Adult health examination [id number] Z00.00 Pap/HPV normal 11/01/20 repeat in 2023 (has h/o abnormal pap)Check fasting labsMammog thanh age 41Colon cancer screen age 46Yearly flu vaccineCov id booster this fall Hyperlipidemia 63375949 E78.5 Vitamin D deficiency 347 66718 E55.9 Dysuria 25578137 R30.0 Hyperglycemia 49317625 R 73.9 Fatigue 74243158 R53.83 Renewal of prescription 213863273 Z76.0 [id number] Kayley Huang MD [facility] Primary Care [facility] [address] [facility] [address] [place] [address] 01/10/2023 10:33:29 01/10/2023 10:52:39 Cough 36604028 R05.9 prednisone 40 mg daily x 5 days with food, avoid other nsaidsdoxy cycline 100 mg po bid x 7 daysalbute rol hfa prncall/re turn if no improvemen t in 2 weeks or sooner if neededrevi ewed s/s that warrant urgent/linda rgent eval in meantimeco nsider cxr if no improvemen t Allergic reaction 784277 005 T78.40XA [id number] ERIC Melgar [facility] [address] [place] [address] 10/26/2023 15:23:57 10/29/2023 14:03:24 Pain of left knee joint [id number] 19877 M25.562 Sprain of left knee 1176 590995 8245016 S83.92XA [id number] ERIC Melgar [facility] [address] [place] [address] 12/13/2023 09:44:27 12/13/2023 10:56:02 Sprain of left knee 4932114826 5830388 S83.92XD Pain of le ft knee joint 4452201186 99637 M25.562 Derangemen t of left knee 7604266239 3111982 M23.92 [id number] Anber Wright MD [facility] [address] [place] [address] 01/02/2024 14:33:28 01/02/2024 15:31:22 Derangement of left knee 0196871259 8796605 M23.92 Sprain of left knee 1176 315239 9704011 S83.92XD Pain of le ft knee joint 8601153326 77182 M25.562 Nicotine dependence 5629 4008 F17.200 Complete t ear, knee, anterior cruciate ligament 638966448 S83.512A Health Concerns Section Related Observation LastModified by Organization Detai ls LastModified Time None Recorded Concern Status LastModified by Organization Details LastModified Time None Recorded Advance Directives Directive N: Payers Encounter Date Sequence Insurance Name Policy Number Policy Pires Covered Member ID Pires Member ID Guarantor Name 11/28/2022 1 [facility] ON OR AFTER 10/07/20 (MEDICAID REPLACEMENT - HMO) Lucie Lazar [id number] Lucie Lazar 01/10/2023 1 [facility] ON OR AFTER 10/07/20 (MEDICAID REPLACEMENT - HMO) Lucie Lazar [id number] Lucie Lazar 10/26/2023 1 [facility] ON OR AFTER 10/07/20 (MEDICAID REPLACEMENT - HMO) Lucie Lazar [id number] Lucie Lazar 12/13/2023 1 [facility] - DOS ON OR AFTER 20 (MEDICAID REPLACEMENT - HMO) Lucie Lazar [id number] Lucie Lazar 01/02/2024 1 [facility] - DOS ON OR AFTER 20 (MEDICAID REPLACEMENT - HMO) Lucie Lazar [id number] Lucie Lazar Notes Date Note Type Note Provider Name and Address Organization Details Recorded Time 11/28/2022 text/html Here for wellnes s exam she thinks she might have kidney infection-having increased abd pain, no dysuria, +urinary urgency/frequency. +fatigue Kayley Huang MD [address], [facility] [address], [place], [address], [facility] [employer] [facility] 11/28/2022 14:51:55 01/10/2023 text/html Here for wellnes s exam she thinks she might have kidney infection-having increased abd pain, no dysuria, +urinary urgency/frequency. +fatigue update 01/10/23: still having cough now with watery diarrhea, No fever. Covid test was negative. Appetite is down, she is staying hydrated. No abd pain. No n/v. Cough is not productive, but she feels congested in her chest. Kayley Huang MD [address], [facility] [address], [place], [address], [facility] 01/10/2023 10:49:25 10/26/2023 text/html patient returns with a new injury to her left knee. She states on October 07 she was running across the street when she landed awkwardly her knee gave way and she fell down landing on her left side. She had immediate left knee pain she did go to the emergency room at [facility] x-rays were performed. X-rays demonstrated no acute fracture lesion or mass she has no significant osteoarthritis no joint effusion x-rays were unremarkable. I have reviewed the x-rays in detail today with the patient agree with the above findings. She continues to have generalized knee pain states she did not land on her knee when she fell just mainly on her left side. She had a similar problem with her left knee about a year ago she was treated with physical therapy and oral anti-inflammatory medication. As going to see her back a month later for possible MRI scan however she did not return she was doing well until this recent injury. She now states she has pain that limits her daily activities about a 7 on a scale of 1-10 despite taking qfht-[id number]-[id number] anti-inflammatory medication, activity modification ice etc. her symptoms continue. She denies any effusion or swelling today is walking with a limp because her left knee pain denies any locking or catching in the knee. She comes in today for initial evaluation treatment after recent injury. ERIC Melgar [address], [place], [address], [facility] [employer] [facility] 10/26/2023 16:07:35 12/13/2023 text/html Patient returns with continuing left knee pain. I originally saw her about 6 weeks ago she had sprained her left knee while running across the street. She did not fall or strike her knee on the street we tried to set her up with a course of physical therapy however she is not accomplish that as she states she was not able to get a hold of anybody at the therapy office. We did try oral prednisone and a shot of cortisone she states this really did not give her too much relief either. Then recently she was going down some stairs when she felt a sudden pop in the knee which caused global pain since that time she has had a lot more pain she denies any locking or catching but has limited motion has trouble fully extending her knee with help she can get nearly there can only flex her knee to about 90? ? ?. She states she has global pain about a 7 on a scale of 1-10 she is able to bear full weight comes in today in a knee brace limping hesitant to go through the arc of motion. She denies any weakness no mechanical symptoms now no sensation of instability she was coming in for recheck but now she has new pain after another recent episode of popping in the knee. New past medical history sheet was reviewed and signed on intake sheet of today's date drug allergies current medications family social history previous surgical history 10 point review of systems was reviewed and discussed in detail today with the patient. ERIC Melgar [address], [address], [place], [address], [facility] [employer] [place] [employer] 12/13/2023 10:43:01 OBGyn Episode No OBEpisode recorded.
--- OUTSIDE RECORDS SUMMARY | 2024-05-02 13:32 | XMS_ITS | Clinical Summary ---
Author Organization [facility] Address [address] [place] [address] Care Team Providers Care Director Network Development Name Role Phone Unknown, Notinfile Primary Care Provider Unavail able Allergies Active Allergy Reactions Criticality Noted Date [...] (07/14/2016): PALPITATIONS Dizziness 08/23/2013 Overview (07/14/2016): Dizziness Encounters Date Type Department Care Team Description 04/10/2024 5:58 PM REMOTE SENSING RESEARCH SCIENTIST - 04/10/2024 11:59 PM REMOTE SENSING RESEARCH SCIENTIST Hospital Encounter [facility] Emergency, Room R Discharge Disposition: Discharge to home or self care from Last 3 Months Medical History Medical History Date Comments Slipped cervical disc Asthma Social History Tobacco Use Types Packs/Day Years Used Date Smoking Tobacco: Every Day Smokeless Tobacco: Never Comments:Smoking History Pac ks/day: 0 Packs Alcohol Use Standard Drinks/Week Comments No 0 (1 standard drink = 0.6 oz pur e alcohol) Comments No Sex and Gender Information Value Date Recorded Sex Assigned at Not on file Legal Sex Female 3:37 AM REMOTE SENSING RESEARCH SCIENTIST Gender Identity Not on file Sexual Orientation Not on file Obstetrics History Last Filed Vital Signs Vital Sign Reading [...] 11/15/2017 5:47 PM CDT Plan of Treatment Health Maintenance Due Date Last Done Comments Cervical Cancer Screening 1986 Depression Screening 1986 Hepatitis C Screening 1986 Pneumococcal vaccine <65 (1 of 2 - PCV) 02/07/1992 DTaP/Tdap/Td Vaccine (1 - Tdap) 1997 Varicella Vaccines (1 of 2 - 13+ 2-dose series) 1999 Hepatitis B Screening 02/07/2004 Regular Well Visit/Exam 18-64 02/07/2004 HPV Vaccines (3 - 3-dose series) 09/17/2019 06/25/19 20, 01/16/2007 Covid-19 Vaccine ( - season) 12/09/202302/2021, 09/03/2020 Influenza Vaccine (#1) 2023 6, 02/04/2015, 05/26/2013 Insurance [employer] [facility] [id number] Care Teams Director Network Development Relationship Specialty Start Date End Date Unknown, Notinfile PCP - General 11/15/17
--- OUTSIDE RECORDS SUMMARY | 2024-05-02 13:32 | XMS_ITS | Patient Health Record ---
Author Organization [facility] Address [address] [place] [address] Care Team Providers Care Talent Acquisition Specialist Name Role Phone Aramis Ballard Primary Care Provider [phone] [facility] Unav ailable Unavailable Allergies Allergen (clinical drug ingredient) Drug/Non Drug Allergy documented on EMR Reaction Allergy Type Onset Date Status amoxicillin Amoxicillin throat swelling Drug Allergy Active aspirin Aspirin bloody nose Drug Allergy Activ e Sulfamethoxazole Micro throat swelling Drug Allergy Active Reason For Referral No Information Medications Medication SIG (Take, Route, Frequency, Duration) Notes Start Date End Date Status hydrOXYzine Pamoate 25 MG 1 capsule as n eeded Orally every 8 hrs Active traZODone HCl 50 MG 1 tablet at bedtime as needed Orally Once a day Active OXcarbazepine 300 MG 1 tablet Orally Twi ce a day for 30 days Active Problems Problem Type SNOMED Code ICD Code Onset Dates Problem Status W/U Status Risk Notes Problem Bipolar 2 disorder ([id number]) Bipolar 2 disorder (F31.81) Active confirmed Plan Of Treatment No Information Insurance Providers Payer Name Payer Address Payer Phone Subscriber Number Group Number Insured Name Patient Relationship to Insured Coverage Start Date Coverage End Date [address] [phone] [id number] Carmen Lazar Self - patient is the insured 4 Medical (General) History Hospitalization History Reason Date(Month/Year) [facility] for self injury apr 2017
--- OUTSIDE RECORDS SUMMARY | 2024-05-02 13:32 | XMS_ITS | Continuity of Care Document ---
Author Organization [facility] Address [address] [place] [address] Phone Care Team Providers Care Receiver Stocker Name Role Phone Richard Stacy DO Unavailable Unavailable Advance Directives Directive Yes / No Effective Date File Name No Information Encounters Encounter Description Practice Location Reason(s) For Visit Diagnoses Date Provider Providers Copied on Encounter [facility], [address], [place], [place], [id number], [place] tel:[phone] [facility] No Information Tawanna Garrett. [address], [place], [address], [place]. tel: [phone] Family History Family Member Type Diagnosis Age At Onset No Information Payers Payer name Insurance type Covered alliance party ID Authoriza tion(s) Medicaid [facility] [id number] Social History Type Description Quantity Date Captured Comments Sex Female Smoking Status No Information Chief Complaint And Reason For Visit No Information Reason For Referral Reason For Referral No Information History Of Present Illness Encounter Date Complaint History Of Prese nt Illness No Information Functional Status Date Functional Assessmen t No Information Instructions Date Instruction Additional Infor mation No Information Assessments Type Assessment Date No Information Patient Care Teams Name Effective Dates (start - stop) Status Members No Information
--- OUTSIDE RECORDS SUMMARY | 2024-05-02 13:32 | XMS_ITS | CONTINUITY OF CARE DOCUMENT ---
Author Name maría daniel Address Unknown Organization [facility] Address [address] [facility] [facility] [address] [place] [address] Phone [phone] Care Team Providers Care Cap Jewel Plate Assembler Name Role Phone Billie Hodge MD Unavailable Billie Hodge MD Unavailable INSURANCE PROVIDERS Payer name Policy type / Coverage type Rutledge red libertarian [employer] [facility] [facility] Medicaid 0 [id number] [place] (2) Medicaid [id number]
--- NOTE | 2024-05-02 13:33 | ECG_ITS ---
Test Date: 2024-05-02 13:39:37 Measurements Intervals [place] Rate: 98 P: 22 [place]: 143 QRS: -2 QRSD: 94 T: 6 QT: 341 QTc: 436 Interpretive Statements SINUS RHYTHM Compared to ECG 11/28/2023 17:06:14 Sinus tachycardia no longer present Electronically Signed On 05-02-2024 23:55:11 FELT HAT INSPECTOR AND PACKER by Tony Lovett M.D.
[2024-05-02 13:41] VITALS: BP 121/83; PULSE 96; RESP 16; TEMP 36.4; O2SAT 100
[2024-05-02 13:52] LABS: Basophils Percent Auto 0.1 % (0.2-1.2); Eosinophils Absolute Auto 0.1 K/mm3 (0-0.3); Eosinophils Percent Auto 1.5 % (0-4.4); Hematocrit 41.3 % (37.0-47.0); Hemoglobin 13.6 g/dL (12.0-15.0); Immature Granulocyte Absolute 0.04 K/mm3 (0.00-0.031); Immature Granulocyte Percent A 0.5 % (0-0.5); Lymphocytes Percent Auto 33.5 % (18.3-44.2); Mean Corpuscular HGB Conc 32.9 g/dl (32-36); Mean Corpuscular Hemoglobin 25.6 pg (26-34); Mean Corpuscular Volume 77.8 fl (80-100); Mean Platelet Volume 9.6 fl (7.4-10.4); Monocytes Absolute Auto 0.5 K/mm3 (0.1-0.6); Monocytes Percent Auto 5.7 % (2.6-8.5); Neutrophils Absolute Auto 4.7 K/mm3 (1.3-6.7); Neutrophils Percent Auto 58.7 % (45.5-73.1); Platelet Count Result 324 k/mm3 (150-375); Red Blood Count 5.31 M/mm3 (4.2-5.4); Red Cell Distribution Width 14.1 % (11.5-14.5); White Blood Count 8.1 K/mm3 (4.5-10.0)
[2024-05-02 14:04] LABS: Alanine Aminotransferase 39 U/L (6-35); Alkaline Phosphatase 62 U/L (38-126); Anion Gap 11 mmol/L (4-12); Aspartate Amino Transferase 30 U/L (14-36); Bilirubin,Total 0.5 mg/dL (0.2-1.3); Blood Urea Nitrogen 10 mg/dL (7-17); Calcium 8.8 mg/dL (8.4-10.2); Carbon Dioxide 19 mmol/L (22-30); Chloride 109 mmol/L (98-107); Estimated CRCL calculation 139 ml/min; Estimated Glomerular Filt Rate > 60; Glucose 97 mg/dL (65-110); Lipase 137 U/L (23-300); Potassium 3.8 mmol/L (3.4-5.0); Sodium 139 mmol/L (137-145)
[2024-05-02 14:14] LABS: Troponin I < 0.012 ng/mL (0.000-0.034)
[2024-05-02 14:29] LABS: Prothrombin Time 13.5 Seconds (11.1-14.7)
[2024-05-02 14:30] LABS: Partial Thromboplastin Time 28.4 Seconds (22.3-36.8)
[2024-05-02 14:53] VITALS: O2SAT 100
--- NOTE | 2024-05-02 16:03 | ED.GENADULT ---
HPI - General Adult General Chief complaint: Chest Pain Stated complaint: chest pain Time Seen by Provider: 05/02/24 15:45 Source: patient Mode of arrival: ambulatory Limitations: no limitations History of Present Illness HPI narrative: 39-year-old otherwise healthy diagnosed with COVID 2 days ago at [facility] here with a complaint of for cough, congestion, dizziness for last 2 days she also states that she has occasional chest pain when she is coughing. She denies any shortness of breath. Onset (ago): day(s) (2) Severity: mild Exacerbating factors: none Associated symptoms: denies other symptoms Related Data Home Medications ?Medication ?Instructions ?Recorded ?Confirmed ?Last Taken ?Type ciprofloxacin HCl 500 mg tablet 500 mg PO DAILY 04/23/24 04/23/24 Unknown History oxycodone-acetaminophen 5 mg-325 1 tablet PO Q4H PRN 04/23/24 04/23/24 Unknown History mg tablet Allergies Allergy/AdvReac Type Severity Reaction Status Date / Time amoxicillin Allergy Severe amoxicillin Verified 05/02/24 13:33 ([id number]) peanut Allergy Severe peanut Verified 05/02/24 13:33 ([id number]) Sulfa (Sulfonamide Allergy Mild Sulfa Verified 05/02/24 13:33 Antibiotics) (Sulfonamide Antibiotics) ([id number]) cephalexin Allergy Unknown cephalexin Verified 05/02/24 13:33 ([id number]) Penicillins Allergy Unknown Penicillins Verified 05/02/24 13:33 ([id number]) azithromycin Allergy Hives Verified 05/02/24 13:33 latex AdvReac Mild Rash Verified 05/02/24 13:33 Review of Systems Review of Systems: All systems reviewed & are unremarkable except as noted in HPI and below Constitutional: Constitutional: Reports no additional constitutional complaints Eyes: Eyes: Reports no additional eye complaints ENT: Reports system reviewed and no additional complaints, except as documented Cardiovascular: Cardiovascular: Reports as per HPI Respiratory: Respiratory: Reports as per HPI Musculoskeletal: Musculoskeletal: Reports no additional musculoskeletal complaints Integumentary/Breasts: Skin/Breast: Reports system reviewed and no additional complaints, except as docu Neurologic: Reports system reviewed and no additional complaints, except as documented PMFSH Past Medical History Medical History Tachycardia Social History Social History Smoking packs per day: 0.5 Smoking cigarettes per day: 10.0 Smoking status: Current every day smoker Tobacco type: cigarettes Alcohol intake: current Drinks per week: 2 Substance use: never Do You Feel Safe in your Home?: Yes Lack of Transportation: No Lack of Food: Never True Current Housing: I Have Housing Concerned About Future Housing: No Difficulty Paying Gas/Electric Bills: YES Difficulty Paying for Meds: No Currently Unemployed: No Education: Decline to Answer Difficulty w/ Childcare or Family Care: No Living arrangements: with family Occupation/Education: unemployed Gender identity (if verbalized by the patient): Female Sexual Orientation (if Verbalized by the Patient): Straight or Heterosexual Spiritual care concerns: No Agree to blood products: Yes Exam Narrative: GENERAL: Well-appearing, well-nourished, and in no acute distress. HEAD: Normocephalic, atraumatic. EYES: PERRLA and EOMI. NECK: Supple. CHEST: Clear to auscultation. No respiratory distress. HEART: Regular rate and rhythm. No murmur heard. Normal peripheral pulses. ABDOMEN: Soft, nontender, nondistended, normal active bowel sounds. EXTREMITIES: Normal range of motion. No edema. SKIN: Warm, dry, no rash. NEURO: No focal deficits. Alert and oriented x3. PSYCH: Normal mood and affect. Course Course Emergency Course: Notified patient about her lab work, EKG and chest x-ray findings advised her to drink more fluids, rest take Tylenol or ibuprofen for fever Vital Signs Vital signs: Vital Signs Temperature 36.4 C 05/02/24 13:41 Pulse Rate 96 05/02/24 13:41 Respiratory Rate 16 05/02/24 13:41 Blood Pressure 121/83 05/02/24 13:41 Pulse Oximetry 100 05/02/24 13:41 Temperature 36.4 C 05/02/24 13:41 Pulse Rate 96 05/02/24 13:41 Respiratory Rate 16 05/02/24 13:41 Blood Pressure 121/83 05/02/24 13:41 Pulse Oximetry 100 05/02/24 14:53 Oxygen Delivery Room Air 05/02/24 14:53 Medical Decision Making Vital Signs Vital Signs: Vital Signs Temperature 36.4 C 05/02/24 13:41 Pulse Rate 96 05/02/24 13:41 Respiratory Rate 16 05/02/24 13:41 Blood Pressure 121/83 05/02/24 13:41 Pulse Oximetry 100 05/02/24 13:41 Temperature 36.4 C 05/02/24 13:41 Pulse Rate 96 05/02/24 13:41 Respiratory Rate 16 05/02/24 13:41 Blood Pressure 121/83 05/02/24 13:41 Pulse Oximetry 100 05/02/24 14:53 Oxygen Delivery Room Air 05/02/24 14:53 Lab Data Lab results reviewed: Yes I reviewed the patient's lab results. 05/02/24 13:45 05/02/24 13:45 Labs: Lab Results 05/02/24 Range/Units 13:45 WBC 8.1 (4.5-10.0) K/mm3 RBC 5.31 (4.2-5.4) M/mm3 Hgb 13.6 (12.0-15.0) g/dL Hct 41.3 (37.0-47.0) % MCV 77.8 L (80-100) fl MCH 25.6 L (26-34) pg MCHC 32.9 (32-36) g/dl RDW 14.1 (11.5-14.5) % Plt Count 324 (150-375) k/mm3 MPV 9.6 (7.4-10.4) fl Immature Gran % (Auto) 0.5 (0-0.5) % Neut % (Auto) 58.7 (45.5-73.1) % Lymph % (Auto) 33.5 (18.3-44.2) % [place] % (Auto) 5.7 (2.6-8.5) % Eos % (Auto) 1.5 (0-4.4) % Baso % (Auto) 0.1 L (0.2-1.2) % Lymph # (Auto) 2.70 (0.9-3.2) K/mm3 [place] # (Auto) 0.5 (0.1-0.6) K/mm3 Eos # (Auto) 0.1 (0-0.3) K/mm3 Baso # (Auto) 0.0 (0.0-0.1) K/mm3 Abs Immat Gran (auto) 0.04 H (0.00-0.031) K/mm3 Absolute Neuts (auto) 4.7 (1.3-6.7) K/mm3 Absolute Nucleated RBC 0.000 (0.0-0.012) K/mm3 Nucleated RBC % 0.0 (0.0-0.2) % PT 13.5 (11.1-14.7) Seconds INR 1.0 APTT 28.4 (22.3-36.8) Seconds Sodium 139 (137-145) mmol/L Potassium 3.8 (3.4-5.0) mmol/L Chloride 109 H (98-107) mmol/L Carbon Dioxide 19 L (22-30) mmol/L Anion Gap 11 (4-12) mmol/L BUN 10 (7-17) mg/dL Creatinine 0.52 L (0.7-1.0) mg/dL Estim Creat Clear Calc 139 ml/min Estimated GFR > 60 (59 - ) Glucose 97 (65-110) mg/dL Calcium 8.8 (8.4-10.2) mg/dL Total Bilirubin 0.5 (0.2-1.3) mg/dL AST 30 (14-36) U/L ALT 39 H (6-35) U/L Alkaline Phosphatase 62 (38-126) U/L Troponin I < 0.012 (0.000-0.034) ng/mL Total Protein 8.0 (6.3-8.2) g/dL Albumin 4.0 (3.5-5.1) g/dL Lipase 137 (23-300) U/L Imaging Data Radiologist's impression: ITS Impressions Chest X-Ray 05/02/24 14:46 IMPRESSION: 1. No acute cardiopulmonary disease. ECG Data EKG #1: ECG completion date: 05/02/24 ECG completion time: 13:39 EKG Interpretation: normal rate (98), sinus rhythm, no ectopy and no acute changes Discharge Plan Discharge Clinical Impression: Acute viral syndrome Chest pain Qualifiers: Chest pain type: unspecified Qualified Code(s): R07.9 - Chest pain, unspecified Patient Disposition: Home, Self-Care Condition: Stable Instructions: Chest Pain (ED) Additional Instructions: drink more fluids , follow with your doctor. Patient Language: Hebrew Prescriptions: No Action ciprofloxacin HCl 500 mg tablet 500 mg PO DAILY oxycodone-acetaminophen 5-325 mg tablet 1 tablet PO Q4H PRN metronidazole 500 mg tablet 500 mg PO Q8H 7 Days Qty: 21 0RF ondansetron 4 mg tablet,disintegrating 4 mg PO Q8H PRN (Reason: nausea and vomiting) Qty: 10 0RF metronidazole 500 mg tablet 500 mg PO Q12H 7 Days Qty: 14 0RF Follow-up/Referrals: Tanner,Conrado Roblero APRN [Primary Care Provider] - Time of Disposition: 16:19
--- OUTSIDE RECORDS SUMMARY | 2024-05-02 16:06 | XMS_ITS | Referral Summary ---
Author Organization [facility] Address [address] [place] [address] Care Team Providers Care Global Lead Name Role Phone Unknown, Notinfile Primary Care Provider Unavail able Encounters Date Type Department Care Team Description 04/10/2024 5:58 PM HOG CUTTER - 04/10/2024 11:59 PM HOG CUTTER Hospital Encounter [facility] Emergency, Room [...] on file Legal Sex Female 3:37 AM HOG CUTTER Gender Identity Not on file Sexual Orientation [...] Plan of Treatment Not on file Insurance [facility] Care Teams Global Lead Relationship Specialty Start Date End Date Unknown, Notinfile PCP - General 11/15/17
--- OUTSIDE RECORDS SUMMARY | 2024-05-02 16:06 | XMS_ITS | CONTINUITY OF CARE DOCUMENT ---
Author Name maría daniel Address Unknown Organization [facility] Address [address] [address] [place] [address] Phone [phone] Care Team Providers Care Squeezer Operator Name Role Phone Billie Hodge MD Unavailable [phone] Billie Hodge MD Unavailable INSURANCE PROVIDERS Payer name Policy type / Coverage type [place] red democrat [place] [facility] [facility] [employer] [employer] Medicaid [id number] [place] [employer] (2) Medicaid [id number]
--- OUTSIDE RECORDS SUMMARY | 2024-05-02 16:06 | XMS_ITS | Clinical Summary ---
Author Organization [facility] Address [address] [place] [address] Care Team Providers Care Senior Infrastructure Engineer Name Role Phone Unknown, Notinfile Primary Care [...] Department Care Team Description 04/10/2024 5:58 PM SAFETY PHYSICIAN - 04/10/2024 11:59 PM SAFETY PHYSICIAN Hospital Encounter [facility] Emergency, Room [...] on file Legal Sex Female 3:37 AM SAFETY PHYSICIAN Gender Identity Not on file Sexual Orientation [...] Vaccine (#1) 2023 6, 02/04/2015, 05/26/2013 Insurance [place] [facility] [id number] Care Teams Senior Infrastructure Engineer Relationship Specialty Start Date End Date Unknown, Notinfile PCP - General 11/15/17
--- OUTSIDE RECORDS SUMMARY | 2024-05-02 16:06 | XMS_ITS | Patient Health Record ---
Author Organization [facility] Planning Address [address] [place] [id number] Care Team Providers Care Director Transition Name Role Phone Bertrand Smith Primary Care Provider Allergies Allergen (clinical drug ingredient) Drug/Non Drug Allergy documented on EMR Reaction Allergy Type Onset Date Status amoxicillin amoxicilin (uncoded) throat swells Allergy Active aspirin Aspirin (uncoded) nose bleeds Allergy Active peanuts (uncoded) mouth swells Allergy Active Substance with sulfonamide structure and antibacterial mechanism of action (substance) Sulpha (uncoded) throat swells Allergy Active Reason For Referral No Information Medications Medication SIG (Take, Route, Fr equency, Duration) Notes Start Date End Date Status Vitamins (Dis) as directed Orally daily Active Social History Tobacco use other than smoking: Question Answer Notes Are you an other tobacco user? No Plan Of Treatment No Information Insurance Providers Payer Name Payer Address Payer Phone Subscriber Number Group Number Insured Name Patient Relationship to Insured Coverage Start Date Coverage End Date [facility] [address] [place] [phone] [id number] CadyCarmen Self - patient is the insured 5 Medical (General) History Medical History History ICD Code ADHD Bipolor schizophrenia anxiety depression PTSD Surgical History Surgery Date(Month/Year) 2002
--- OUTSIDE RECORDS SUMMARY | 2024-05-02 16:06 | XMS_ITS | Continuity of Care Document ---
Author Organization [facility] Address [address] [place] [address] Phone Care Team Providers Care Medical Historian Name Role Phone Richard Stacy DO Unavailable Unavailable Advance Directives Directive Yes / No Effective Date File Name No Information Encounters Encounter Description Practice Location Reason(s) For Visit Diagnoses Date Provider Providers Copied on Encounter [facility], [address], [place], [place], [id number], [place] [phone] [facility] No Information Tawanna Garrett. [address] [facility], [place], [address], [place]. tel: [phone] Family History Family Member Type Diagnosis Age At Onset No Information Payers Payer name Insurance type Covered democrat ID Authoriza tion(s) Medicaid [facility] [id number] Social History Type Description Quantity Date Captured [...]
[2024-05-02 16:51] VITALS: BP 140/84; PULSE 80; RESP 16; O2SAT 99
== END 2024-05-02 16:53 | disposition home or self-care (01) ==
PROVIDERS: Emergency Provider Family Medicine; PCP Nurse Practitioner Family
DX: U07.1 COVID-19 (principal); R07.9 Chest pain, unspecified; F17.210 Nicotine dependence, cigarettes, uncomplicated
CPT/HCPCS: 36415; 71046; 80053; 83690; 84484; 85025; 85610; 85730; 93005; 99284